=== PATIENT | female | born 1975 ===

== ENCOUNTER → 2017-09-14 | Outpatient (CLI) | payer OTHER ==
[~2017-09-14] MED LIST: ACET325T14 PO; ALBU8.5H8 INH; CALC-173 PO; CEFU500T50 PO; GLIM1TAB2 PO; GLYB2.5T2 PO; HYDR-3307; HYDR-882 PO; INSU100C5 SQ-INSULIN; INSU100I29 SQ; INSU1INS; LISI-167 PO; LORA1TAB PO; MAGN71.5 PO; METF-366; METO25TA35 PO; METO25TA91 PO; NICO-485 TD; PANT40GR PO; PANT40TA3 PO; PRED10TA PO; PROP50TA3 PO; SUCR1TAB33 PO
[2017-09-14 11:54] LABS: INTERNATIONAL NORMALIZED RATIO 0.95 (0.93-1.1); PROTHROMBIN TIME 9.8 Seconds (9.6-11.5)
[2017-09-14 11:56] LABS: ALANINE AMINOTRANSFERASE 17 U/L (12-78); ALBUMIN 3.3 g/dL (3.4-5.0); ANION GAP 6 mmol/L (5-15); CALCIUM 8.1 mg/dL (8.5-10.1); CHLORIDE 106 mmol/L (98-107); CREATININE 0.75 mg/dL (0.55-1.02)
[2017-09-14 11:59] LABS: ALKALINE PHOSPHATASE 104 U/L (45-117); BILIRUBIN,TOTAL 0.7 mg/dL (0.2-1.0); TOTAL PROTEIN 7.1 g/dL (6.4-8.2)
[2017-09-14 12:04] LABS: BASOPHILS % (AUTO) 0 % (0-1); EOSINOPHILS # (AUTO) 0.14 x10^3/uL (0-0.4); EOSINOPHILS % (AUTO) 2 % (1-7); LYMPHOCYTES # (AUTO) 2.09 x10^3/uL (1-3.4); LYMPHOCYTES % (AUTO) 36 % (22-44); MD NO; MEAN CORPUSCULAR HEMOGLOBIN 17.8 pg (27.0-34.8); MEAN CORPUSCULAR VOLUME 60.5 fL (80-100); MEAN PLATELET VOLUME 8.3 fL (7.4-10.4); MONOCYTES # (AUTO) 0.37 x10^3/uL (0.2-0.8); MONOCYTES % (AUTO) 6 % (2-9); NEUTROPHILS # (AUTO) 3.25 x10^3/uL (1.8-6.8); NEUTROPHILS % (AUTO) 56 % (42-75); PLATELET COUNT 253 x10^3/uL (130-400); RED BLOOD COUNT 4.93 x10^6/uL (3.82-5.3); RED CELL DISTRIBUTION WIDTH 17.3 % (9.6-15.2)
[2017-09-14 12:06] LABS: MEAN CORPUSCULAR HGB CONC 29.4 g/dL (32.4-35.8)
[2017-09-14 12:30] LABS: CULTURE INDICATED? YES; MICROSCOPIC AUTO
== END ==
LOC: STAR 10:35
PROVIDERS: ATTEND Neurological Surgery
DX: Z01.818 Encounter for other preprocedural examination (principal); E11.9 Type 2 diabetes mellitus without complications; R01.1 Cardiac murmur, unspecified; Z87.891 Personal history of nicotine dependence
CPT/HCPCS: 36415; 71046; 80053; 81001; 85025; 85610; 85730; 87086; 87147; 93005

== ENCOUNTER 2020-02-04 20:39 | Observation (INO) | payer MEDICAID, OTHER ==
[~2020-02-04] VITALS: Ht 162.6 cm; Wt 46.4 kg
[~2020-02-04 20:39] MED LIST changes: +ALPR0.25 PO; +AMIT10TA PO; +DOCU240C53 PO; +FERR-51 PO; +GABA-827 PO; +GABA600T7 PO; -GLIM1TAB2 PO; +GLIM1TAB7 PO; +HYDR-2440 PO; +HYDR-3246; -HYDR-3307; +HYDR-3653 PO; -HYDR-882 PO; +HYDR4TAB48 PO; +INSU100I13 SQ; +INSU100V8 SQ; +METH750T2 PO; +MULT-449 PO; +SENN-193 PO
--- NOTE | 2020-02-04 21:32 | NUR ---
Pt here for epi gastric chest pain with radiation to jaw at times. Pt reports she has had the discomfort since this morning with no resolve in symptoms. Pt reports she is unable to get and better pain control with APAP and NSAIDS at home. Pt is not diaphoretic and chest pain is reproduceable. Pt reports lower back pain but has chronic back pain and a cage in her back from previous surgeries. Pt connected to monitors and call light in reach. Awaiting further orders.
[2020-02-04] MEDS ORDERED: HYDROmorphone 1 MG/ML, 1ML INJ IV ONE ×2 (22:00→22:30)
[2020-02-04] MEDS ORDERED: ONDANSETRON 2MG/ML, 2ML IVPush ONE (22:00)
[2020-02-04] MEDS ORDERED: HYDROmorphone 1 MG/ML, 1ML INJ ONE ×2 (22:03→22:40)
[2020-02-04] MEDS ORDERED: ONDANSETRON 2MG/ML, 2ML ONE (22:03)
--- NOTE | 2020-02-04 22:15 | NUR ---
Pt medicated per emar, provider informed that 1 mg of diludid was not helping pain.
[2020-02-04 22:47] LABS: BASOPHILS # (AUTO) 0.02 x10^3/uL (0-0.1); BASOPHILS % (AUTO) 0 % (0-1); EOSINOPHILS # (AUTO) 0.02 x10^3/uL (0-0.4); EOSINOPHILS % (AUTO) 0 % (1-7); LYMPHOCYTES # (AUTO) 3.49 x10^3/uL (1-3.4); LYMPHOCYTES % (AUTO) 48 % (22-44); MD NO; MEAN CORPUSCULAR HEMOGLOBIN 27.8 pg (27.0-34.8); MEAN CORPUSCULAR HGB CONC 32.3 g/dL (32.4-35.8); MEAN PLATELET VOLUME 7.8 fL (7.4-10.4); MONOCYTES # (AUTO) 0.42 x10^3/uL (0.2-0.8); MONOCYTES % (AUTO) 6 % (2-9); NEUTROPHILS # (AUTO) 3.31 x10^3/uL (1.8-6.8); NEUTROPHILS % (AUTO) 46 % (42-75); PLATELET COUNT 211 x10^3/uL (130-400); RED BLOOD COUNT 5.46 x10^6/uL (3.82-5.3); RED CELL DISTRIBUTION WIDTH 14.3 % (9.6-15.2)
[2020-02-04 22:57] LABS: ALBUMIN 3.8 g/dL (3.4-5.0); ANION GAP 7 mmol/L (5-15); CALCIUM 8.7 mg/dL (8.5-10.1); CHLORIDE 103 mmol/L (98-107)
[2020-02-04 23:02] LABS: TROPONIN I < 0.015 ng/mL (0.000-0.045)
--- NOTE | 2020-02-04 23:13 | NUR ---
Pt reports relief in pain
[2020-02-04 23:29] LABS: FREE T4 (FREE THYROXINE) 1.02 ng/dL (0.76-1.46)
[2020-02-04] MEDS ORDERED: HYDROmorphone 2 MG/ML, 1ML ONE (23:53)
[2020-02-05] MEDS ORDERED: HYDROmorphone 2 MG/ML, 1ML IV ONE
--- NOTE | 2020-02-05 00:09 | NUR ---
Bedside report to Kelly BARNES
--- NOTE | 2020-02-05 00:11 | NUR ---
RECEIVED BS REPORT FROM CAMERON LORD. PT. MEDICATED DURING BS REPORT FOR CONTINUED C/O EPIGASTRIC PAIN. FAMILY AT BS FOR SUPPORT. PT. DENIES FURTHER NEEDS AT THE MOMENT. SPO2, B/P, AND HEART MONITORS IN PLACE. ALL SAFETY MEASURES OBSERVED.
[2020-02-05] MEDS ORDERED: LORazepam 2 MG/ML, 1ML IVPush ONE (00:30)
[2020-02-05] MEDS ORDERED: LORazepam 2 MG/ML, 1ML ONE (00:34)
--- NOTE | 2020-02-05 00:39 | NUR ---
WIND TURBINE SHEET METAL WORKER AT BS; PT. MEDICATED PER MAR FOR ANXITEY R/T MRI. PT. TO MRI AT THIS TIME.
--- NOTE | 2020-02-05 01:50 | NUR ---
PT. BACK FROM MRI; PT. REPORTS PAIN REMAINS 01/05 BUT STATES "IT'S BETTER THAN WHEN I GOT HERE, IT'S GOING DOWN". DENIES NEEDS AT THIS TIME.
--- NOTE | 2020-02-05 02:00 | NUR ---
Report received from CAMERON Dunlap. This RN to assume care.
--- NOTE | 2020-02-05 02:04 | NUR ---
REPORT TO CAMERON HA TO ASSUME CARE.
[2020-02-05] MEDS ORDERED: HYDROmorphone 2 MG/ML, 1ML ONE ×2 (02:14→03:44)
--- NOTE | 2020-02-05 02:20 | NUR ---
Patient c/o continued pain and nausea. Meds admin per jul.
[2020-02-05] MEDS ORDERED: ONDANSETRON 2MG/ML, 2ML ONE (02:26)
[2020-02-05] MEDS: HYDROmorphone 2 MG/ML, 1ML IVPush PRN ×2 (02:29→03:51)
[2020-02-05] MEDS ORDERED: ONDANSETRON 2MG/ML, 2ML IVPush ONE (02:30)
--- NOTE | 2020-02-05 02:38 | NUR ---
Awaiting MRI results.
[2020-02-05] MEDS ORDERED: KETAMINE 10 MG/ML, 20ML IV ONE (04:00)
[2020-02-05] MEDS ORDERED: SODIUM CHLORIDE 0.9% 1,000 ML IV SCH (04:02)
[2020-02-05] MEDS ORDERED: KETAMINE 10 MG/ML, 20ML ONE (04:06)
[2020-02-05] MEDS ORDERED: DEXTROSE 4 GM TAB.CHEW PO PRN (04:30)
[2020-02-05] MEDS ORDERED: ACETAMINOPHEN 325 MG TABLET PO PRN (04:30)
[2020-02-05] MEDS ORDERED: hydrALAzine 20 MG/ML, 1ML IVPush PRN (04:30)
[2020-02-05] MEDS ORDERED: GLUCAGON 1 MG IM PRN (04:30)
[2020-02-05] MEDS ORDERED: TRAZODONE 50MG TABLET PO PRN (04:30)
[2020-02-05] MEDS ORDERED: ONDANSETRON 2MG/ML, 2ML IVPush PRN (04:30)
[2020-02-05] MEDS ORDERED: DEXTROSE 50%, 50ML SYRINGE IVPush PRN (04:30)
[2020-02-05] MEDS ORDERED: DOCUSATE 100 MG CAPSULE PO PRN (04:30)
--- NOTE | 2020-02-05 04:46 | NUR ---
Report given to CAMERON Garcia. Patient transferred to room 527.
[2020-02-05 04:54] VITALS: BP 96/68
[2020-02-05] MEDS ORDERED: HYDROmorphone 4MG TABLET PO PRN (05:00)
[2020-02-05] MEDS ORDERED: NITROGLYCERIN 0.4 MG/SPRAY SL PRN (05:00)
[2020-02-05] MEDS ORDERED: NITROGLYCERIN 0.4 MG BOTTLE (25 TABS) SL PRN (05:00)
[2020-02-05] MEDS ORDERED: METHOCARBAMOL 750 MG TABLET PO PRN (05:00)
[2020-02-05] MEDS ORDERED: HYDR-3245 PO (05:08)
[2020-02-05] MEDS ORDERED: FERR324T5 PO (05:08)
[2020-02-05] MEDS ORDERED: AMIT50TA PO (05:08)
[2020-02-05] MEDS ORDERED: METH5TAB2 PO (05:31)
[2020-02-05] MEDS ORDERED: ASPIRIN 81 MG TABLET EC PO SCH (06:00)
[2020-02-05] MEDS: GABAPENTIN 300 MG CAPSULE PO SCH ×3 (06:06→16:46)
[2020-02-05] MEDS: INSULIN GLARGINE 100 UNITS/ML, PEN SQ-INSULIN SCH ×2 (06:06→12:43)
[2020-02-05] MEDS: INSULIN LISPRO 100 UNITS/ML, PEN SQ-INSULIN SCH ×3 (07:00→16:00)
[2020-02-05 07:04] LABS: CHOLESTEROL, TOTAL 185 mg/dL (140-239); TRIGLYCERIDES 188 mg/dL (50-200); TROPONIN I < 0.015 ng/mL (0.000-0.045); VLDL CHOLESTEROL 38 mg/dL (0-25)
[2020-02-05 07:05] LABS: CHOL/HDL RATIO 3.3; HDL CHOL % 30 % (28-40); HDL CHOLESTEROL (DIRECT) 56 mg/dL (40-60); LDL CHOLESTEROL,CALCULATED 91 mg/dL (54-169); LDL/HDL RATIO 1.6 (0.5-3.0)
[2020-02-05 07:35] VITALS: BP 158/74
[2020-02-05] MEDS: FERROUS SULFATE 325 MG TABLET PO SCH ×2 (08:25→14:04)
[2020-02-05] MEDS ORDERED: REGADENOSON 0.4 MG/5 ML SYRINGE ONE (08:50)
[2020-02-05] MEDS ORDERED: DOCUSATE CALCIUM 240 MG CAPSULE PO SCH (09:00)
[2020-02-05] MEDS ORDERED: ENOXAPARIN 40 MG/0.4 ML SQ SCH (09:00)
[2020-02-05] MEDS ORDERED: MULTIVITAMIN 1 TABLET PO SCH (09:00)
[2020-02-05] MEDS ORDERED: SODIUM CHLORIDE FLUSH 10ML SYR IVF SCH (09:00)
[2020-02-05] MEDS ORDERED: SENNA/DOCUSATE TABLET PO SCH (09:00)
[2020-02-05] MEDS ORDERED: METOPROLOL TARTRATE 25 MG TAB PO SCH (09:00)
[2020-02-05] MEDS ORDERED: PROPYLTHIOURACIL 50 MG TABLET PO SCH (09:00)
[2020-02-05] MEDS ORDERED: HYDROmorphone 2MG TABLET ONE ×2 (09:55→16:26)
[2020-02-05] MEDS: HYDROmorphone 4MG TABLET PO PRN ×2 (10:00→16:35)
[2020-02-05 13:09] VITALS: BP 104/65
[2020-02-05] MEDS ORDERED: METHADONE 5 MG TABLET PO SCH (17:00)
[2020-02-05] MEDS ORDERED: AMITRIPTYLINE 10 MG TABLET PO SCH (21:00)
[2020-02-05] MEDS ORDERED: ATORVASTATIN 80 MG TABLET PO SCH (21:00)
== END 2020-02-05 18:43 | disposition home or self-care (01) ==
LOC: ED 22:31 → 5SO 02-05 05:01
PROVIDERS: ADMIT Student in an Organized Health Care Education/Training Program; ATTEND Internal Medicine
DX: R07.89 Other chest pain (principal); G89.29 Other chronic pain; M54.5 Low back pain; E11.9 Type 2 diabetes mellitus without complications; E05.90 Thyrotoxicosis, unspecified without thyrotoxic crisis or storm; R00.0 Tachycardia, unspecified; I10 Essential (primary) hypertension; F17.210 Nicotine dependence, cigarettes, uncomplicated; Z79.4 Long term (current) use of insulin; Z79.899 Other long term (current) drug therapy
CPT/HCPCS: 36415; 71045; 72148; 78452; 80048; 80061; 82040; 82947; 82962; 83036; 84439; 84443; 84481; 84484; 84703; 85025; 93005; 93017; 96361; 96372; 96374; 96375; 96376; 97162; 97165; 99285; A9502; G0378; J1170; J1650; J1815; J2060; J2405; J2785; J7030

== ENCOUNTER 2020-02-28 20:14 | Inpatient (IN) | payer MEDICAID ==
[~2020-02-28] VITALS: Ht 162.6 cm; Wt 48.4 kg
[~2020-02-28 20:14] MED LIST changes: +AMIT50TA PO; +FERR324T5 PO; +HYDR-3245 PO; +METH5TAB2 PO
[2020-02-28] MEDS ORDERED: MORPHINE SULFATE 4 MG/ML, 1ML ONE ×2 (20:52→21:47)
[2020-02-28] MEDS ORDERED: SODIUM CHLORIDE FLUSH 10ML SYR IVF ONE (21:00)
[2020-02-28] MEDS ORDERED: SODIUM CHLORIDE 0.9% 1,000ML IVBOLUS ONE (21:00)
[2020-02-28] MEDS: MORPHINE SULFATE 4 MG/ML, 1ML IVPush PRN ×2 (21:00→21:51)
[2020-02-28 21:16] LABS: BASOPHILS # (AUTO) 0.01 x10^3/uL (0-0.1); BASOPHILS % (AUTO) 0 % (0-1); EOSINOPHILS # (AUTO) 0.03 x10^3/uL (0-0.4); EOSINOPHILS % (AUTO) 1 % (1-7); LYMPHOCYTES # (AUTO) 2.48 x10^3/uL (1-3.4); LYMPHOCYTES % (AUTO) 41 % (22-44); MD NO; MEAN CORPUSCULAR HEMOGLOBIN 28.9 pg (27.0-34.8); MEAN CORPUSCULAR HGB CONC 32.5 g/dL (32.4-35.8); MONOCYTES # (AUTO) 0.47 x10^3/uL (0.2-0.8); MONOCYTES % (AUTO) 8 % (2-9); NEUTROPHILS # (AUTO) 3.12 x10^3/uL (1.8-6.8); NEUTROPHILS % (AUTO) 51 % (42-75); PLATELET COUNT 254 x10^3/uL (130-400); RED CELL DISTRIBUTION WIDTH 14.2 % (9.6-15.2)
[2020-02-28] MEDS ORDERED: ONDANSETRON ODT 4 MG ONE (21:17)
--- NOTE | 2020-02-28 21:22 | NUR ---
PT HAS BEEN DIFFICULT TO PLACE PIV. THIS RN ATTEMPTED TWICE, MAC ARTIST ATTEMPTED WITH US, TASK RN AT BEDSIDE TO ATTEMPT US PIV. LABS COLLECTED BY ONE OF THE PIV ATTEMPTS WITH MANUFACTURING PROCESS ENGINEER.
[2020-02-28 21:26] LABS: ALANINE AMINOTRANSFERASE 32 U/L (12-78); ANION GAP 9 mmol/L (5-15); CALCIUM 9.3 mg/dL (8.5-10.1); CHLORIDE 101 mmol/L (98-107); CREATININE 0.61 mg/dL (0.55-1.02)
[2020-02-28] MEDS ORDERED: ONDANSETRON ODT 4 MG PO ONE (21:30)
[2020-02-28 21:31] LABS: ALKALINE PHOSPHATASE 160 U/L (45-117); TOTAL PROTEIN 8.3 g/dL (6.4-8.2); TROPONIN I < 0.015 ng/mL (0.000-0.045)
--- NOTE | 2020-02-28 21:33 | NUR ---
PIV PLACED BY TASK RN VIA US.
--- NOTE | 2020-02-28 21:54 | NUR ---
PT WHEELED TO RESTROOM TO PROVIDE URINE SAMPLE. PT STATES SHE IS IN TOO MUCH PAIN TO WALK. UA COLLECTED AND SENT TO LAB. PT MEDICATED WITH SECOND DOSE MORPHINE. IVF INFUSING. WARM BLANKET PROVIDED.
[2020-02-28 22:17] LABS: MICROSCOPIC NOT IND
--- NOTE | 2020-02-28 22:56 | NUR ---
REPORT FROM [facility]
--- NOTE | 2020-02-28 23:20 | NUR ---
PT RESTING ON GURKAYA NADN RESP EVEN AND UNLABORED NO CHANGES TO MONITORING VSS, PT REQ PAIN MEDICATION STS MORPHINE DOES NOT HELP "BUT ONE TIME I GOT THIS ONE WITH A D AND WOULD LIKE TO TRY THAT THIS TIME" ERP ADVISED.
[2020-02-29] MEDS ORDERED: KETAMINE 10 MG/ML, 20ML ONE (00:39)
--- NOTE | 2020-02-29 00:45 | NUR ---
PT MEDICATED PER MAR PER DR CAMPOS, UPON ENTERING ROOM PT AND SPOUSE RUDE TO STAFF DEMANDING TO KNOW WHAT TOOK SO LONG AND WHY RN WAS NOT IN ROOM SOONER, PT EDUCATED THAT RN WAS ATTENDING TO OTHER PATIENTS. PT AND SPOUSE BEGAN ASKING RN IF SOMEONE WAS BLEEDING OUT OR DYING THEY FEEL THAT THEY SHOULD BE GETTING RN PRIMARY FOCUS.
[2020-02-29] MEDS ORDERED: KETAMINE 10 MG/ML, 20ML IV ONE (01:00)
[2020-02-29] MEDS ORDERED: morphine SULFATE 10 MG/ML, 1ML IVPush PRN (01:30)
[2020-02-29] MEDS ORDERED: INSULIN GLARGINE 100 UNITS/ML, PEN SQ-INSULIN SCH (01:30)
[2020-02-29] MEDS ORDERED: HYDROmorphone 4MG TABLET PO PRN (01:30)
[2020-02-29] MEDS ORDERED: HYDROcodone/APAP 10/325 MG TABLET PO PRN (01:30)
--- NOTE | 2020-02-29 01:45 | NUR ---
REPORT TO NATHEN BARNES PT READY FOR TRANSFER TO ROOM 362
[2020-02-29 02:53] VITALS: BP 120/74
[2020-02-29] MEDS ORDERED: AMITRIPTYLINE 50 MG TABLET PO SCH ×2 (03:00→21:00)
[2020-02-29] MEDS: morphine SULFATE 10 MG/ML, 1ML IVPush PRN ×3 (03:11→08:42)
[2020-02-29 03:48] VITALS: BP 148/89
[2020-02-29] MEDS ORDERED: AMITRIPTYLINE 10 MG TABLET PO SCH (04:14)
[2020-02-29] MEDS: HYDROmorphone 2MG TABLET PO PRN ×3 (04:57→17:53)
[2020-02-29 05:00] VITALS: BP 145/82
[2020-02-29 05:47] LABS: TROPONIN I < 0.015 ng/mL (0.000-0.045)
[2020-02-29] MEDS: GABAPENTIN 300 MG CAPSULE PO SCH ×4 (06:26→21:24)
[2020-02-29 06:44] VITALS: BP 115/74
[2020-02-29] MEDS: INSULIN LISPRO 100 UNITS/ML, PEN SQ-INSULIN SCH ×4 (07:00→21:45)
[2020-02-29] MEDS: DOCUSATE CALCIUM 240 MG CAPSULE PO SCH ×2 (08:46→10:02)
[2020-02-29] MEDS: PROPYLTHIOURACIL 50 MG TABLET PO SCH (08:47)
[2020-02-29] MEDS ORDERED: METOPROLOL TARTRATE 25 MG TAB PO SCH (09:00)
[2020-02-29] MEDS: SENNA/DOCUSATE TABLET PO SCH (09:00)
[2020-02-29] MEDS: FERROUS SULFATE 325 MG TABLET PO SCH ×3 (10:01→21:45)
[2020-02-29] MEDS: METHOCARBAMOL 750 MG TABLET PO SCH (10:01)
[2020-02-29] MEDS: HYDROcodone/APAP 10/325 MG TABLET PO PRN ×3 (10:01→21:25)
[2020-02-29] MEDS: MULTIVITAMIN 1 TABLET PO SCH (10:02)
[2020-02-29] MEDS: METOPROLOL TARTRATE 25 MG TAB PO SCH ×3 (10:02→21:24)
[2020-02-29] MEDS: METHADONE 5 MG TABLET PO SCH ×2 (10:03→21:24)
[2020-02-29] MEDS: INSULIN GLARGINE 100 UNITS/ML, PEN SQ-INSULIN SCH (11:24)
[2020-02-29 14:05] VITALS: BP 139/93
[2020-02-29 14:31] LABS: FREE T4 (FREE THYROXINE) 1.56 ng/dL (0.76-1.46)
[2020-02-29 20:15] VITALS: BP 136/74
[2020-02-29] MEDS: AMITRIPTYLINE 10 MG TABLET PO SCH (21:24)
[2020-02-29] MEDS: AMITRIPTYLINE 50 MG TABLET PO SCH (21:24)
[2020-02-29] MEDS ORDERED: ONDANSETRON 2MG/ML, 2ML IVPush PRN (21:30)
[2020-03-01 00:40] VITALS: BP 111/70
[2020-03-01] MEDS: HYDROmorphone 2MG TABLET PO PRN ×5 (00:45→22:07)
[2020-03-01] MEDS: GABAPENTIN 300 MG CAPSULE PO SCH ×4 (05:08→21:04)
[2020-03-01 05:09] LABS: MEAN CORPUSCULAR HEMOGLOBIN 28.9 pg (27.0-34.8); MEAN CORPUSCULAR HGB CONC 32.5 g/dL (32.4-35.8); PLATELET COUNT 210 x10^3/uL (130-400); RED BLOOD COUNT 4.97 x10^6/uL (3.82-5.3); RED CELL DISTRIBUTION WIDTH 14.1 % (9.6-15.2)
[2020-03-01 05:10] VITALS: BP 117/74
[2020-03-01 05:21] LABS: ALBUMIN 3.1 g/dL (3.4-5.0); ANION GAP 4 mmol/L (5-15); CALCIUM 8.5 mg/dL (8.5-10.1); CHLORIDE 105 mmol/L (98-107)
[2020-03-01 05:25] LABS: ALANINE AMINOTRANSFERASE 50 U/L (12-78); ALKALINE PHOSPHATASE 135 U/L (45-117); BILIRUBIN,TOTAL 0.6 mg/dL (0.2-1.0); CREATININE 0.54 mg/dL (0.55-1.02); TOTAL PROTEIN 6.6 g/dL (6.4-8.2)
[2020-03-01 05:45] LABS: MD YES
[2020-03-01 06:16] LABS: EOS#(MANUAL) 0.48 x10^3/uL (0.0-0.4); EOS% (MANUAL) 7 % (1-7); LYMPH#(MANUAL) 3.54 x10^3/uL (1-3.4); LYMPHS% (MANUAL) 52 % (22-44); MONOS#(MANUAL) 0.34 x10^3/uL (0.3-2.7); MONOS% (MANUAL) 5 % (2-9); REACTIVE LYMPHS # (MANUAL) 0.07 x10^3/uL (0-0); REACTIVE LYMPHS % (MANUAL) 1 % (0-0); SEG#(MANUAL) 2.38 x10^3/uL (1.8-6.8); SEGS% (MANUAL) 35 % (42-75)
[2020-03-01 06:17] LABS: <PLATELET ESTIMATE> ADEQUATE; <PLT MORPHOLOGY> NORMAL PLT MORPH; ANISOCYTOSIS 1+
[2020-03-01] MEDS: INSULIN LISPRO 100 UNITS/ML, PEN SQ-INSULIN SCH ×4 (07:00→21:00)
[2020-03-01 07:24] VITALS: BP 121/74
[2020-03-01] MEDS ORDERED: HYDR4TAB PO (07:45)
[2020-03-01] MEDS: METHOCARBAMOL 750 MG TABLET PO SCH (08:04)
[2020-03-01] MEDS: METHADONE 5 MG TABLET PO SCH ×2 (08:04→21:04)
[2020-03-01] MEDS: METOPROLOL TARTRATE 25 MG TAB PO SCH ×3 (08:04→21:04)
[2020-03-01] MEDS: PROPYLTHIOURACIL 50 MG TABLET PO SCH (09:00)
[2020-03-01] MEDS ORDERED: METHIMAZOLE 5 MG TAB PO SCH (09:00)
[2020-03-01] MEDS ORDERED: METO25TA35 PO (09:28)
[2020-03-01] MEDS ORDERED: METH10TA6 PO (09:28)
[2020-03-01] MEDS: MULTIVITAMIN 1 TABLET PO SCH (09:30)
[2020-03-01] MEDS: FERROUS SULFATE 325 MG TABLET PO SCH ×3 (09:30→21:04)
[2020-03-01] MEDS: SENNA/DOCUSATE TABLET PO SCH (09:32)
[2020-03-01] MEDS: INSULIN GLARGINE 100 UNITS/ML, PEN SQ-INSULIN SCH (09:49)
[2020-03-01] MEDS ORDERED: DOCUSATE CALCIUM 240 MG CAPSULE PO PRN (12:00)
[2020-03-01 13:08] VITALS: BP 107/70
[2020-03-01 16:32] VITALS: BP 112/70
[2020-03-01 19:51] VITALS: BP 116/72
[2020-03-01] MEDS ORDERED: AMITRIPTYLINE 25 MG TABLET ONE (21:58)
[2020-03-01] MEDS: AMITRIPTYLINE 50 MG TABLET PO SCH (22:08)
[2020-03-01] MEDS: AMITRIPTYLINE 10 MG TABLET PO SCH (22:08)
[2020-03-02 01:02] VITALS: BP 106/67
[2020-03-02] MEDS: HYDROmorphone 2MG TABLET PO PRN ×4 (04:44→23:18)
[2020-03-02] MEDS: GABAPENTIN 300 MG CAPSULE PO SCH ×4 (06:03→20:37)
[2020-03-02] MEDS: INSULIN LISPRO 100 UNITS/ML, PEN SQ-INSULIN SCH ×4 (07:00→21:00)
[2020-03-02 08:46] VITALS: BP 121/78
[2020-03-02] MEDS: METOPROLOL TARTRATE 25 MG TAB PO SCH ×3 (08:54→20:37)
[2020-03-02] MEDS: MULTIVITAMIN 1 TABLET PO SCH (08:55)
[2020-03-02] MEDS: METHOCARBAMOL 750 MG TABLET PO SCH (08:55)
[2020-03-02] MEDS: METHADONE 5 MG TABLET PO SCH ×2 (08:56→20:37)
[2020-03-02] MEDS: SENNA/DOCUSATE TABLET PO SCH (08:57)
[2020-03-02] MEDS: FERROUS SULFATE 325 MG TABLET PO SCH ×4 (08:57→16:32)
[2020-03-02] MEDS: INSULIN GLARGINE 100 UNITS/ML, PEN SQ-INSULIN SCH (08:59)
[2020-03-02 12:05] VITALS: BP 105/69
[2020-03-02 18:32] VITALS: BP 123/75
[2020-03-02] MEDS: AMITRIPTYLINE 10 MG TABLET PO SCH (21:46)
[2020-03-02] MEDS: AMITRIPTYLINE 50 MG TABLET PO SCH (21:46)
[2020-03-03 00:14] VITALS: BP 125/76
[2020-03-03] MEDS: GABAPENTIN 300 MG CAPSULE PO SCH ×4 (05:15→20:46)
[2020-03-03] MEDS: HYDROmorphone 2MG TABLET PO PRN ×4 (05:15→23:16)
[2020-03-03 06:30] VITALS: BP 120/77
[2020-03-03] MEDS: INSULIN LISPRO 100 UNITS/ML, PEN SQ-INSULIN SCH ×4 (07:48→22:04)
[2020-03-03] MEDS: FERROUS SULFATE 325 MG TABLET PO SCH ×3 (09:16→16:42)
[2020-03-03] MEDS: METHADONE 5 MG TABLET PO SCH ×2 (09:16→20:46)
[2020-03-03] MEDS: METOPROLOL TARTRATE 25 MG TAB PO SCH ×3 (09:16→20:46)
[2020-03-03] MEDS: METHOCARBAMOL 750 MG TABLET PO SCH (09:16)
[2020-03-03] MEDS: SENNA/DOCUSATE TABLET PO SCH (09:17)
[2020-03-03] MEDS: MULTIVITAMIN 1 TABLET PO SCH (09:17)
[2020-03-03] MEDS: INSULIN GLARGINE 100 UNITS/ML, PEN SQ-INSULIN SCH (09:18)
[2020-03-03 13:10] VITALS: BP 99/65
--- NOTE | 2020-03-03 14:35 | NUR ---
green nursing activity sheet intiated up to chair for meals walk with nursing 2-3 times a day EARNEST valdivia x10 bilaterally pt and RN agreed Addendum: 03/03/20 at 1437 by Tamra Parker PT Amended: Links added.
[2020-03-03 16:17] VITALS: BP 103/67
[2020-03-03 17:17] VITALS: BP 118/77
[2020-03-03 18:35] VITALS: BP 115/69
[2020-03-03] MEDS: AMITRIPTYLINE 50 MG TABLET PO SCH (22:04)
[2020-03-03] MEDS: AMITRIPTYLINE 10 MG TABLET PO SCH (22:04)
[2020-03-04 00:30] VITALS: BP 101/63
[2020-03-04] MEDS: HYDROmorphone 2MG TABLET PO PRN ×4 (05:18→23:53)
[2020-03-04] MEDS: GABAPENTIN 300 MG CAPSULE PO SCH ×4 (05:18→20:28)
[2020-03-04 06:34] VITALS: BP 106/69
[2020-03-04] MEDS: METHOCARBAMOL 750 MG TABLET PO SCH (08:06)
[2020-03-04] MEDS: FERROUS SULFATE 325 MG TABLET PO SCH ×3 (08:06→16:52)
[2020-03-04] MEDS: INSULIN LISPRO 100 UNITS/ML, PEN SQ-INSULIN SCH ×4 (08:06→20:29)
[2020-03-04] MEDS: METHADONE 5 MG TABLET PO SCH ×2 (08:06→20:28)
[2020-03-04] MEDS: MULTIVITAMIN 1 TABLET PO SCH (08:06)
[2020-03-04] MEDS: SENNA/DOCUSATE TABLET PO SCH (08:07)
[2020-03-04] MEDS: METOPROLOL TARTRATE 25 MG TAB PO SCH ×3 (08:07→20:28)
[2020-03-04] MEDS: INSULIN GLARGINE 100 UNITS/ML, PEN SQ-INSULIN SCH (08:08)
[2020-03-04 13:56] VITALS: BP 103/64
[2020-03-04 16:56] VITALS: BP 116/75
[2020-03-04 19:53] VITALS: BP 106/61
[2020-03-04] MEDS: AMITRIPTYLINE 10 MG TABLET PO SCH (21:09)
[2020-03-04] MEDS: AMITRIPTYLINE 50 MG TABLET PO SCH (21:09)
[2020-03-05 00:06] VITALS: BP 104/67
[2020-03-05] MEDS: HYDROmorphone 2MG TABLET PO PRN ×3 (06:09→18:13)
[2020-03-05] MEDS: GABAPENTIN 300 MG CAPSULE PO SCH ×4 (06:09→20:40)
[2020-03-05 07:51] VITALS: BP 113/74
[2020-03-05] MEDS: SENNA/DOCUSATE TABLET PO SCH (09:00)
[2020-03-05] MEDS: FERROUS SULFATE 325 MG TABLET PO SCH ×3 (09:16→18:13)
[2020-03-05] MEDS: INSULIN LISPRO 100 UNITS/ML, PEN SQ-INSULIN SCH ×5 (09:16→21:31)
[2020-03-05] MEDS: MULTIVITAMIN 1 TABLET PO SCH (09:17)
[2020-03-05] MEDS: METOPROLOL TARTRATE 25 MG TAB PO SCH ×3 (09:17→20:41)
[2020-03-05] MEDS: METHOCARBAMOL 750 MG TABLET PO SCH (09:17)
[2020-03-05] MEDS: METHADONE 5 MG TABLET PO SCH ×2 (09:17→20:40)
[2020-03-05] MEDS: INSULIN GLARGINE 100 UNITS/ML, PEN SQ-INSULIN SCH (10:33)
[2020-03-05] MEDS ORDERED: MAALOX/HYOSCYAMINE/LIDOCAINE 45 ML BTL PO ONE (12:00)
[2020-03-05 12:58] VITALS: BP 113/73
[2020-03-05] MEDS ORDERED: INSULIN LISPRO 100 UNITS/ML, PEN SQ-INSULIN SCH (16:00)
[2020-03-05 20:34] VITALS: BP 108/67
[2020-03-05] MEDS: AMITRIPTYLINE 10 MG TABLET PO SCH (21:31)
[2020-03-05] MEDS: AMITRIPTYLINE 50 MG TABLET PO SCH (21:31)
[2020-03-06 00:12] VITALS: BP 102/63
[2020-03-06] MEDS: HYDROmorphone 2MG TABLET PO PRN ×4 (00:15→18:03)
[2020-03-06] MEDS: GABAPENTIN 300 MG CAPSULE PO SCH ×4 (06:13→20:51)
[2020-03-06] MEDS: METHOCARBAMOL 750 MG TABLET PO SCH (07:53)
[2020-03-06] MEDS: SENNA/DOCUSATE TABLET PO SCH (07:53)
[2020-03-06] MEDS: FERROUS SULFATE 325 MG TABLET PO SCH ×3 (07:53→16:52)
[2020-03-06] MEDS: METOPROLOL TARTRATE 25 MG TAB PO SCH ×3 (07:53→20:51)
[2020-03-06] MEDS: METHADONE 5 MG TABLET PO SCH ×2 (07:53→20:51)
[2020-03-06] MEDS: INSULIN GLARGINE 100 UNITS/ML, PEN SQ-INSULIN SCH (07:54)
[2020-03-06] MEDS: INSULIN LISPRO 100 UNITS/ML, PEN SQ-INSULIN SCH ×4 (07:55→22:02)
[2020-03-06] MEDS: MULTIVITAMIN 1 TABLET PO SCH (07:57)
[2020-03-06 09:02] VITALS: BP 101/67
[2020-03-06 12:30] VITALS: BP 98/62
[2020-03-06 19:24] VITALS: BP 106/69
[2020-03-06] MEDS: AMITRIPTYLINE 10 MG TABLET PO SCH (21:53)
[2020-03-06] MEDS: AMITRIPTYLINE 50 MG TABLET PO SCH (21:53)
[2020-03-07] MEDS: HYDROmorphone 2MG TABLET PO PRN ×5 (00:09→23:01)
[2020-03-07 00:41] VITALS: BP 104/67
[2020-03-07] MEDS: GABAPENTIN 300 MG CAPSULE PO SCH ×4 (06:05→20:40)
[2020-03-07] MEDS: INSULIN LISPRO 100 UNITS/ML, PEN SQ-INSULIN SCH ×5 (07:00→20:40)
[2020-03-07] MEDS: METHOCARBAMOL 750 MG TABLET PO SCH (08:47)
[2020-03-07] MEDS: MULTIVITAMIN 1 TABLET PO SCH (08:48)
[2020-03-07] MEDS: METHADONE 5 MG TABLET PO SCH ×2 (08:48→20:39)
[2020-03-07] MEDS: SENNA/DOCUSATE TABLET PO SCH (08:48)
[2020-03-07] MEDS: METOPROLOL TARTRATE 25 MG TAB PO SCH ×3 (08:48→20:39)
[2020-03-07] MEDS: FERROUS SULFATE 325 MG TABLET PO SCH ×3 (08:48→16:33)
[2020-03-07] MEDS: INSULIN GLARGINE 100 UNITS/ML, PEN SQ-INSULIN SCH (08:49)
[2020-03-07 10:45] VITALS: BP 100/69
[2020-03-07 15:51] VITALS: BP 101/66
[2020-03-07 20:00] VITALS: BP 109/70
[2020-03-07 20:36] VITALS: BP 116/69
[2020-03-07] MEDS: AMITRIPTYLINE 50 MG TABLET PO SCH (20:39)
[2020-03-07] MEDS: AMITRIPTYLINE 10 MG TABLET PO SCH (20:40)
[2020-03-08 00:35] VITALS: BP 108/68
[2020-03-08] MEDS: HYDROmorphone 2MG TABLET PO PRN ×4 (05:25→23:04)
[2020-03-08] MEDS: GABAPENTIN 300 MG CAPSULE PO SCH ×4 (05:25→20:44)
[2020-03-08 06:40] VITALS: BP 110/71
[2020-03-08] MEDS: MULTIVITAMIN 1 TABLET PO SCH (07:41)
[2020-03-08] MEDS: METHOCARBAMOL 750 MG TABLET PO SCH (07:41)
[2020-03-08] MEDS: METOPROLOL TARTRATE 25 MG TAB PO SCH ×3 (07:41→20:45)
[2020-03-08] MEDS: SENNA/DOCUSATE TABLET PO SCH (07:41)
[2020-03-08] MEDS: INSULIN LISPRO 100 UNITS/ML, PEN SQ-INSULIN SCH ×5 (07:41→20:44)
[2020-03-08] MEDS: FERROUS SULFATE 325 MG TABLET PO SCH ×3 (07:41→16:30)
[2020-03-08] MEDS: INSULIN GLARGINE 100 UNITS/ML, PEN SQ-INSULIN SCH (07:43)
[2020-03-08] MEDS: METHADONE 5 MG TABLET PO SCH ×2 (09:09→20:44)
[2020-03-08 12:53] VITALS: BP 103/66
[2020-03-08 19:50] VITALS: BP 107/68
[2020-03-08 20:42] VITALS: BP 114/71
[2020-03-08] MEDS: AMITRIPTYLINE 10 MG TABLET PO SCH (20:44)
[2020-03-08] MEDS: AMITRIPTYLINE 50 MG TABLET PO SCH (20:45)
[2020-03-09 00:22] VITALS: BP 101/65
[2020-03-09] MEDS: HYDROmorphone 2MG TABLET PO PRN ×3 (05:30→18:07)
[2020-03-09] MEDS: GABAPENTIN 300 MG CAPSULE PO SCH ×4 (05:30→20:57)
[2020-03-09] MEDS: FERROUS SULFATE 325 MG TABLET PO SCH ×3 (07:17→16:11)
[2020-03-09] MEDS: METOPROLOL TARTRATE 25 MG TAB PO SCH ×3 (07:17→20:56)
[2020-03-09] MEDS: METHOCARBAMOL 750 MG TABLET PO SCH (07:17)
[2020-03-09] MEDS: MULTIVITAMIN 1 TABLET PO SCH (07:17)
[2020-03-09] MEDS: SENNA/DOCUSATE TABLET PO SCH (07:18)
[2020-03-09 07:22] VITALS: BP 111/68
[2020-03-09] MEDS: INSULIN LISPRO 100 UNITS/ML, PEN SQ-INSULIN SCH ×4 (07:33→20:57)
[2020-03-09] MEDS: METHADONE 5 MG TABLET PO SCH ×2 (09:24→20:56)
[2020-03-09] MEDS: INSULIN GLARGINE 100 UNITS/ML, PEN SQ-INSULIN SCH (09:27)
[2020-03-09 15:24] VITALS: BP 104/65
[2020-03-09 20:21] VITALS: BP 120/69
[2020-03-09] MEDS: AMITRIPTYLINE 50 MG TABLET PO SCH (20:56)
[2020-03-09] MEDS: AMITRIPTYLINE 10 MG TABLET PO SCH (20:56)
[2020-03-10] MEDS: HYDROmorphone 2MG TABLET PO PRN ×4 (00:13→18:33)
[2020-03-10 01:53] VITALS: BP 97/59
[2020-03-10 05:43] LABS: ANION GAP 3 mmol/L (5-15); CALCIUM 8.8 mg/dL (8.5-10.1); CHLORIDE 103 mmol/L (98-107)
[2020-03-10 05:55] LABS: CREATININE 0.54 mg/dL (0.55-1.02)
[2020-03-10] MEDS: GABAPENTIN 300 MG CAPSULE PO SCH ×4 (06:11→20:44)
[2020-03-10 06:30] VITALS: BP 97/60
[2020-03-10] MEDS: FERROUS SULFATE 325 MG TABLET PO SCH ×3 (07:18→15:51)
[2020-03-10] MEDS: MULTIVITAMIN 1 TABLET PO SCH (07:18)
[2020-03-10] MEDS: SENNA/DOCUSATE TABLET PO SCH (07:18)
[2020-03-10] MEDS: METHOCARBAMOL 750 MG TABLET PO SCH (07:19)
[2020-03-10] MEDS: METOPROLOL TARTRATE 25 MG TAB PO SCH ×3 (07:19→20:44)
[2020-03-10 07:23] VITALS: BP 101/60
[2020-03-10] MEDS: INSULIN LISPRO 100 UNITS/ML, PEN SQ-INSULIN SCH ×4 (08:06→20:44)
[2020-03-10] MEDS: METHADONE 5 MG TABLET PO SCH ×2 (09:39→20:44)
[2020-03-10] MEDS: INSULIN GLARGINE 100 UNITS/ML, PEN SQ-INSULIN SCH (10:38)
[2020-03-10 14:55] VITALS: BP 116/65
[2020-03-10 19:41] VITALS: BP 100/68
[2020-03-10 20:41] VITALS: BP 108/69
[2020-03-10] MEDS: AMITRIPTYLINE 10 MG TABLET PO SCH (20:44)
[2020-03-10] MEDS: AMITRIPTYLINE 50 MG TABLET PO SCH (20:45)
[2020-03-11 00:14] VITALS: BP 97/60
[2020-03-11] MEDS: HYDROmorphone 2MG TABLET PO PRN ×3 (04:22→16:06)
[2020-03-11] MEDS: GABAPENTIN 300 MG CAPSULE PO SCH ×3 (05:39→16:06)
[2020-03-11 08:00] VITALS: BP 98/64
[2020-03-11] MEDS ORDERED: DOCUSATE 100 MG CAPSULE ONE (08:07)
[2020-03-11] MEDS: METHADONE 5 MG TABLET PO SCH (08:15)
[2020-03-11] MEDS: METHOCARBAMOL 750 MG TABLET PO SCH (08:15)
[2020-03-11] MEDS: SENNA/DOCUSATE TABLET PO SCH (08:15)
[2020-03-11] MEDS: METOPROLOL TARTRATE 25 MG TAB PO SCH ×2 (08:15→16:06)
[2020-03-11] MEDS: FERROUS SULFATE 325 MG TABLET PO SCH ×3 (08:16→16:40)
[2020-03-11] MEDS: MULTIVITAMIN 1 TABLET PO SCH (08:16)
[2020-03-11] MEDS: INSULIN LISPRO 100 UNITS/ML, PEN SQ-INSULIN SCH ×3 (08:17→16:35)
[2020-03-11] MEDS: INSULIN GLARGINE 100 UNITS/ML, PEN SQ-INSULIN SCH (08:18)
[2020-03-11 10:58] VITALS: BP 100/62
[2020-03-11 14:00] VITALS: BP 104/63
[2020-03-11 17:01] VITALS: BP 102/63
== END 2020-03-11 18:30 | disposition home or self-care (01) | DRG 313 ==
LOC: ED 02-29 01:38 → EDIP 02-29 01:50 → INTOOBSV 02-29 01:50 → 3N 02-29 02:44 → 5SO 02-29 03:42 → OBSVTOIN 03-01 12:18 → 3N 03-01 16:00
PROVIDERS: ADMIT Family Medicine; ATTEND Family Medicine
DX: R07.89 Other chest pain (principal); E43 Unspecified severe protein-calorie malnutrition; F11.20 Opioid dependence, uncomplicated; Z68.1 Body mass index [BMI] 19.9 or less, adult; E11.649 Type 2 diabetes mellitus with hypoglycemia without coma; E11.65 Type 2 diabetes mellitus with hyperglycemia; F41.1 Generalized anxiety disorder; G89.4 Chronic pain syndrome; I10 Essential (primary) hypertension; Z53.20 Procedure and treatment not carried out because of patient's decision for unspecified reasons; Z76.5 Malingerer [conscious simulation]; Z79.899 Other long term (current) drug therapy; Z88.6 Allergy status to analgesic agent; E05.90 Thyrotoxicosis, unspecified without thyrotoxic crisis or storm; R00.0 Tachycardia, unspecified
CPT/HCPCS: 36415; 71045; 76536; 80048; 80053; 81003; 82040; 82962; 83690; 83880; 84439; 84443; 84481; 84484; 85025; 85379; 93005; 93306; 96361; 96374; 96375; 96376; 99285; G0378; Q0162; J1815; J2270; J7030

== ENCOUNTER 2020-10-25 08:22 | Inpatient (IN) | payer MEDICAID ==
[~2020-10-25] VITALS: Ht 162.6 cm; Wt 56.0 kg
[~2020-10-25 08:22] MED LIST changes: +AMIT75TA PO; -HYDR-2440 PO; -HYDR-3245 PO; -HYDR-3246; +HYDR-3248; +HYDR-3569 PO; +HYDR1TAB53 PO; +HYDR4TAB PO; +METH-640 PO; +METH10TA6 PO; -METH750T2 PO; +METO50TA82 PO; +OXYC10TA6 PO; +OXYC5TAB98 PO; +TIZA4CAP PO
[2020-10-25] MEDS ORDERED: ONDANSETRON 2MG/ML, 2ML IVPush ONE (08:30)
[2020-10-25] MEDS ORDERED: SODIUM CHLORIDE 0.9% 1,000ML IVBOLUS ONE ×3 (08:30→10:00)
--- NOTE | 2020-10-25 08:30 | NUR ---
This pt is coming from home where she lives with her and 2 daughters. - , Yan, okay to update: . - She was awoke this AM from sleep by CP. Hx of NC, she described this pain as worse. Pt also c/o nausea. Pt has a hx of DM with 2 hospitalizations for DKA. Pt presents AA&Ox4. Connected to all monitors. EKG done immediately on arrival and repeated approx 15 minutes later.
[2020-10-25] MEDS ORDERED: ONDANSETRON 2MG/ML, 2ML ONE (08:36)
[2020-10-25] MEDS ORDERED: MORPHINE SULFATE 4 MG/ML, 1ML ONE ×2 (08:37→08:58)
[2020-10-25] MEDS: MORPHINE SULFATE 4 MG/ML, 1ML IVPush PRN ×2 (08:38→09:00)
[2020-10-25 09:03] LABS: BASOPHILS % (AUTO) 0 % (0-1); EOSINOPHILS % (AUTO) 0 % (1-7); LYMPHOCYTES % (AUTO) 10 % (22-44); MEAN CORPUSCULAR HGB CONC 31.6 g/dL (32.4-35.8); MEAN PLATELET VOLUME 7.8 fL (7.4-10.4); MONOCYTES % (AUTO) 4 % (2-9); NEUTROPHILS % (AUTO) 87 % (42-75); PLATELET COUNT 279 x10^3/uL (130-400); RED BLOOD COUNT 5.79 x10^6/uL (3.82-5.3); RED CELL DISTRIBUTION WIDTH 19.1 % (9.6-15.2)
[2020-10-25 09:12] LABS: ALBUMIN 4.3 g/dL (3.4-5.0); ANION GAP 19 mmol/L (5-15); CALCIUM 8.8 mg/dL (8.5-10.1); CHLORIDE 102 mmol/L (98-107)
[2020-10-25 09:18] LABS: ALANINE AMINOTRANSFERASE 28 U/L (12-78); ALKALINE PHOSPHATASE 162 U/L (45-117); BILIRUBIN,TOTAL 0.9 mg/dL (0.2-1.0); CREATININE 0.78 mg/dL (0.55-1.02); TOTAL PROTEIN 8.9 g/dL (6.4-8.2); TROPONIN I < 0.015 ng/mL (0.000-0.045)
[2020-10-25 09:21] LABS: MD SCAN
[2020-10-25 09:30] LABS: ACETONE, SERUM Large (80mg/dL) (Negative)
[2020-10-25] MEDS ORDERED: METOCLOPRAMIDE 5 MG/ML, 2ML IVPush ONE (09:30)
[2020-10-25] MEDS ORDERED: METOCLOPRAMIDE 5 MG/ML, 2ML ONE (09:40)
[2020-10-25] MEDS ORDERED: SODIUM CHLORIDE 0.9% 1,000 ML IV SCH (10:00)
[2020-10-25] MEDS ORDERED: LABETALOL 5MG/ML, 20ML IVPush PRN (10:00)
[2020-10-25] MEDS: D5%-0.45NACL+KCL 20MEQ 1,000 ML IV SCH ×3 (10:00→23:53)
[2020-10-25] MEDS ORDERED: DOCUSATE 100 MG CAPSULE PO PRN (10:00)
[2020-10-25] MEDS ORDERED: REGULAR INSULIN 100 UNITS in SODIUM CHLORIDE 0.9% 99 ML IV PRN (10:00)
[2020-10-25] MEDS ORDERED: ENALAPRILAT 1.25 MG/ML, 2ML IVPush PRN (10:00)
[2020-10-25] MEDS ORDERED: POLYETHYLENE GLYCOL 17 GM PACKET PO PRN (10:00)
[2020-10-25] MEDS ORDERED: LORazepam 2 MG/ML, 1ML IVPush ONE (10:00)
[2020-10-25] MEDS ORDERED: BISACODYL 10 MG SUPP PR PRN (10:00)
--- NOTE | 2020-10-25 10:18 | NUR ---
Pt denied bedside commode to collect UA. Pt wheeled to bathroom. UA collected.
--- NOTE | 2020-10-25 10:21 | NUR ---
TASK RN: PT BACK IN BED, HOOKED BACK TO MONITORS. BEDRAIL UPX2, CALL LIGHT W/IN REACH. LIONEL.
[2020-10-25 10:22] LABS: FREE T4 (FREE THYROXINE) 1.6 ng/dL (0.76-1.46)
[2020-10-25] MEDS ORDERED: INSULIN REGULAR 100 UNITS/ML, 3ML VIAL IVPush ONE (10:30)
[2020-10-25] MEDS ORDERED: FERR-51 PO (10:49)
[2020-10-25] MEDS ORDERED: TIZA4TAB2 PO (10:49)
[2020-10-25 11:01] LABS: MICROSCOPIC AUTO
[2020-10-25 11:10] LABS: AMPHETAMINE SCREEN, URINE Negative (Negative); BARBITURATE SCREEN, URINE Negative (Negative); BENZODIAZEPINE SCREEN, URINE Negative (Negative); CANNABINOID SCREEN, URINE Negative (Negative); COCAINE SCREEN, URINE Negative (Negative); METHADONE SCREEN, URINE Positive (Negative); OPIATE SCREEN, URINE Positive (Negative)
[2020-10-25] MEDS: OXYcodone IR 5MG TABLET PO PRN ×3 (11:43→20:27)
[2020-10-25] MEDS: ACETAMINOPHEN 325 MG TABLET PO PRN ×2 (11:43→16:18)
[2020-10-25] MEDS: ENOXAPARIN 40 MG/0.4 ML SQ SCH (11:43)
[2020-10-25] MEDS: METOPROLOL TARTRATE 50 MG TAB PO SCH ×2 (11:43→20:25)
[2020-10-25 12:07] VITALS: BP 154/77
[2020-10-25] MEDS: ONDANSETRON 2MG/ML, 2ML IV PRN ×3 (12:22→20:40)
[2020-10-25 14:56] LABS: CALCIUM 7.5 mg/dL (8.5-10.1); CHLORIDE 114 mmol/L (98-107)
[2020-10-25 15:08] LABS: ANION GAP 10 mmol/L (5-15)
[2020-10-25] MEDS: GABAPENTIN 300 MG CAPSULE PO SCH ×2 (16:18→20:26)
[2020-10-25 17:57] LABS: ANION GAP 9 mmol/L (5-15); CALCIUM 7.4 mg/dL (8.5-10.1); CHLORIDE 114 mmol/L (98-107); CREATININE 0.54 mg/dL (0.55-1.02)
[2020-10-25] MEDS: AMITRIPTYLINE 75 MG TABLET PO SCH (20:24)
[2020-10-25 22:38] LABS: ANION GAP 6 mmol/L (5-15); CALCIUM 7.6 mg/dL (8.5-10.1); CHLORIDE 114 mmol/L (98-107); CREATININE 0.58 mg/dL (0.55-1.02)
[2020-10-26 02:28] LABS: ANION GAP 7 mmol/L (5-15); CHLORIDE 119 mmol/L (98-107); CREATININE 0.46 mg/dL (0.55-1.02)
[2020-10-26] MEDS: OXYcodone IR 5MG TABLET PO PRN ×6 (02:35→23:08)
[2020-10-26] MEDS: ONDANSETRON 2MG/ML, 2ML IV PRN ×4 (04:44→21:03)
[2020-10-26] MEDS: GABAPENTIN 300 MG CAPSULE PO SCH ×4 (06:23→20:39)
[2020-10-26 07:09] LABS: ANION GAP 7 mmol/L (5-15); CALCIUM 7.8 mg/dL (8.5-10.1); CHLORIDE 112 mmol/L (98-107)
[2020-10-26 07:10] LABS: CREATININE 0.44 mg/dL (0.55-1.02)
[2020-10-26] MEDS: INSULIN LISPRO 100 UNITS/ML, PEN SQ-INSULIN SCH ×4 (07:30→20:41)
[2020-10-26] MEDS: METOPROLOL TARTRATE 50 MG TAB PO SCH ×2 (07:50→20:40)
[2020-10-26] MEDS: INSULIN GLARGINE 100 UNITS/ML, PEN SQ-INSULIN SCH ×2 (07:50→20:41)
[2020-10-26] MEDS: MULTIVITAMIN 1 TABLET PO SCH (07:50)
[2020-10-26] MEDS: METHADONE 5 MG TABLET PO SCH (07:51)
[2020-10-26] MEDS: SODIUM CHLORIDE 0.9% 1,000 ML IV SCH ×2 (07:58→14:58)
[2020-10-26 08:31] LABS: TROPONIN I 0.019 ng/mL (0.000-0.045)
[2020-10-26] MEDS: ENOXAPARIN 40 MG/0.4 ML SQ SCH (10:06)
[2020-10-26 10:39] VITALS: BP 135/79
[2020-10-26 13:11] VITALS: BP 144/84
[2020-10-26 18:23] VITALS: BP 143/87
[2020-10-26 20:38] VITALS: BP 134/75
[2020-10-26] MEDS: AMITRIPTYLINE 75 MG TABLET PO SCH (20:39)
[2020-10-26] MEDS: TIZANIDINE 4MG TABLET PO PRN (21:04)
[2020-10-27] MEDS: SODIUM CHLORIDE 0.9% 1,000 ML IV SCH (00:30)
[2020-10-27 00:40] VITALS: BP 106/65
[2020-10-27] MEDS: OXYcodone IR 5MG TABLET PO PRN ×5 (03:47→20:16)
[2020-10-27] MEDS: GABAPENTIN 300 MG CAPSULE PO SCH ×4 (05:19→20:16)
[2020-10-27 05:29] LABS: BASOPHILS % (AUTO) 1 % (0-1); EOSINOPHILS % (AUTO) 2 % (1-7); LYMPHOCYTES % (AUTO) 40 % (22-44); MEAN CORPUSCULAR HEMOGLOBIN 25.6 pg (27.0-34.8); MEAN CORPUSCULAR HGB CONC 32.8 g/dL (32.4-35.8); MEAN PLATELET VOLUME 7.3 fL (7.4-10.4); MONOCYTES % (AUTO) 10 % (2-9); NEUTROPHILS % (AUTO) 47 % (42-75); PLATELET COUNT 203 x10^3/uL (130-400); RED BLOOD COUNT 4.18 x10^6/uL (3.82-5.3); RED CELL DISTRIBUTION WIDTH 19.1 % (9.6-15.2)
[2020-10-27 05:39] LABS: ANION GAP 3 mmol/L (5-15); CALCIUM 7.3 mg/dL (8.5-10.1); CHLORIDE 113 mmol/L (98-107); CREATININE 0.39 mg/dL (0.55-1.02)
[2020-10-27 06:01] LABS: MD NO
[2020-10-27 06:42] VITALS: BP 135/77
[2020-10-27] MEDS: METHADONE 5 MG TABLET PO SCH (07:50)
[2020-10-27] MEDS: TIZANIDINE 4MG TABLET PO PRN ×2 (07:51→15:57)
[2020-10-27] MEDS: METOPROLOL TARTRATE 50 MG TAB PO SCH ×2 (07:51→20:16)
[2020-10-27] MEDS: POTASSIUM CHLORIDE 20 MEQ TAB.ER.PRT PO SCH ×2 (07:51→12:05)
[2020-10-27] MEDS: MULTIVITAMIN 1 TABLET PO SCH (07:51)
[2020-10-27] MEDS: INSULIN GLARGINE 100 UNITS/ML, PEN SQ-INSULIN SCH ×2 (08:12→20:32)
[2020-10-27] MEDS: ENOXAPARIN 40 MG/0.4 ML SQ SCH (08:13)
[2020-10-27] MEDS: INSULIN LISPRO 100 UNITS/ML, PEN SQ-INSULIN SCH ×4 (08:15→20:32)
[2020-10-27] MEDS: ONDANSETRON 2MG/ML, 2ML IV PRN (10:41)
[2020-10-27] MEDS ORDERED: MAGNESIUM SULFATE PMX 2GM/50ML 50 ML IV ONE (13:30)
[2020-10-27 13:41] VITALS: BP 146/78
[2020-10-27] MEDS: POTASSIUM ACID PHOSPHATE 500 MG TABLET.SOL PO SCH ×2 (16:13→22:13)
[2020-10-27 18:55] VITALS: BP 134/78
[2020-10-27 20:14] VITALS: BP 156/93
[2020-10-27] MEDS: AMITRIPTYLINE 75 MG TABLET PO SCH (20:15)
[2020-10-27] MEDS: FERROUS SULFATE 325 MG TABLET PO SCH (20:15)
[2020-10-27] MEDS: MAGNESIUM OXIDE 400 MG TABLET PO SCH (20:16)
[2020-10-28] MEDS: OXYcodone IR 5MG TABLET PO PRN ×5 (00:27→16:38)
[2020-10-28 00:29] VITALS: BP 149/81
[2020-10-28] MEDS: GABAPENTIN 300 MG CAPSULE PO SCH ×3 (04:29→16:34)
[2020-10-28] MEDS: POTASSIUM ACID PHOSPHATE 500 MG TABLET.SOL PO SCH ×2 (04:30→11:04)
[2020-10-28 05:49] LABS: BASOPHILS % (AUTO) 0 % (0-1); EOSINOPHILS % (AUTO) 2 % (1-7); LYMPHOCYTES % (AUTO) 47 % (22-44); MEAN CORPUSCULAR HEMOGLOBIN 25.5 pg (27.0-34.8); MEAN CORPUSCULAR HGB CONC 32.6 g/dL (32.4-35.8); MEAN PLATELET VOLUME 7.5 fL (7.4-10.4); MONOCYTES % (AUTO) 9 % (2-9); NEUTROPHILS % (AUTO) 42 % (42-75); PLATELET COUNT 201 x10^3/uL (130-400); RED BLOOD COUNT 4.43 x10^6/uL (3.82-5.3); RED CELL DISTRIBUTION WIDTH 20.5 % (9.6-15.2)
[2020-10-28 05:50] LABS: CHLORIDE 109 mmol/L (98-107)
[2020-10-28 05:58] LABS: ANION GAP 5 mmol/L (5-15); CALCIUM 7.6 mg/dL (8.5-10.1); CHOL/HDL RATIO 2.5; CHOLESTEROL, TOTAL 147 mg/dL (140-239); CREATININE 0.35 mg/dL (0.55-1.02); HDL CHOL % 40 % (28-40); HDL CHOLESTEROL (DIRECT) 59 mg/dL (40-60); LDL CHOLESTEROL,CALCULATED 73 mg/dL (54-169); LDL/HDL RATIO 1.2 (0.5-3.0); TRIGLYCERIDES 74 mg/dL (50-200); VLDL CHOLESTEROL 15 mg/dL (0-25)
[2020-10-28 06:15] LABS: MD NO
[2020-10-28] MEDS: INSULIN LISPRO 100 UNITS/ML, PEN SQ-INSULIN SCH ×3 (07:00→16:52)
[2020-10-28 07:59] VITALS: BP 145/78
[2020-10-28] MEDS ORDERED: POTASSIUM CHLORIDE 20 MEQ TAB.ER.PRT PO ONE (08:30)
[2020-10-28] MEDS ORDERED: REGADENOSON 0.4 MG/5 ML SYRINGE ONE (09:14)
[2020-10-28] MEDS: MULTIVITAMIN 1 TABLET PO SCH (10:47)
[2020-10-28] MEDS: FERROUS SULFATE 325 MG TABLET PO SCH (10:47)
[2020-10-28] MEDS: METHADONE 5 MG TABLET PO SCH (10:47)
[2020-10-28] MEDS: MAGNESIUM OXIDE 400 MG TABLET PO SCH (10:48)
[2020-10-28] MEDS: METOPROLOL TARTRATE 50 MG TAB PO SCH (10:48)
[2020-10-28] MEDS: INSULIN GLARGINE 100 UNITS/ML, PEN SQ-INSULIN SCH (10:59)
[2020-10-28] MEDS: ENOXAPARIN 40 MG/0.4 ML SQ SCH (11:00)
[2020-10-28] MEDS: TIZANIDINE 4MG TABLET PO PRN (11:04)
[2020-10-28] MEDS ORDERED: INSU100I11 SQ-INSULIN (12:50)
[2020-10-28 13:52] VITALS: BP_SYST 134
== END 2020-10-28 18:12 | disposition home or self-care (01) | DRG 638 ==
LOC: ED 09:18 → EDIP 09:51 → CCU 11:09 → 3N 10-26 10:27
PROVIDERS: ADMIT Internal Medicine; ATTEND Internal Medicine
DX: E10.10 Type 1 diabetes mellitus with ketoacidosis without coma (principal); E87.1 Hypo-osmolality and hyponatremia; F11.20 Opioid dependence, uncomplicated; D72.828 Other elevated white blood cell count; E03.9 Hypothyroidism, unspecified; E05.90 Thyrotoxicosis, unspecified without thyrotoxic crisis or storm; G89.29 Other chronic pain; I10 Essential (primary) hypertension; I25.2 Old myocardial infarction; Z82.49 Family history of ischemic heart disease and other diseases of the circulatory system; Z88.6 Allergy status to analgesic agent; Z88.8 Allergy status to other drugs, medicaments and biological substances; Z83.3 Family history of diabetes mellitus; Z90.49 Acquired absence of other specified parts of digestive tract
CPT/HCPCS: 36415; 71045; 78452; 80048; 80053; 80061; 80307; 81001; 82010; 82728; 82800; 82962; 83036; 83540; 83550; 83690; 83735; 83880; 84100; 84439; 84443; 84484; 84703; 85025; 85379; 87081; 93005; 93017; 93306; 96374; G0378; J1650; J2405; J2785; A9502; J1815; J2270; J2765; J3475; J3480; J7030

== ENCOUNTER 2020-11-26 18:10 | Inpatient (IN) | payer MEDICAID ==
[~2020-11-26] VITALS: Ht 162.6 cm; Wt 62.0 kg
[~2020-11-26 18:10] MED LIST changes: +INSU100I11 SQ-INSULIN; +TIZA4TAB2 PO
--- NOTE | 2020-11-26 18:30 | NUR ---
PT ON ALL ROOM MONITORING. EKG COMPLETED ON ARRIVAL. PT RATES PAIN AT 10/10, DESCRIBED PRESSURE, ONSET ONE HOUR RENTAL COORDINATOR WHILE LYING ON BED/RESTING. SOB AND NAUSEA WITH SS PAIN RADIATING TO BACK. PT REPORTS NO RECENT ILLNESS BUT FELT FATIGUE TODAY AT AROUND NOON. 22 GUAGE TO L HAND RENTAL COORDINATOR, ATTEMPT TO START 2ND IV.
--- NOTE | 2020-11-26 18:44 | NUR ---
ASSUMED CARE OF PATIENT. DR LOMAS TO BEDSIDE.
[2020-11-26] MEDS: SODIUM CHLORIDE 0.9% 1,000 ML IV ONE ×2 (18:47→19:26)
[2020-11-26] MEDS ORDERED: MORPHINE SULFATE 4 MG/ML, 1ML ONE ×3 (18:49→22:38)
[2020-11-26] MEDS ORDERED: ONDANSETRON 2MG/ML, 2ML ONE (18:49)
[2020-11-26] MEDS: MORPHINE SULFATE 4 MG/ML, 1ML IVPush PRN ×2 (18:51→19:25)
--- NOTE | 2020-11-26 18:54 | NUR ---
2ND IV PLACED, LABS DRAWN WITH START. PCXR COMPLETED. PT MEDICATED FOR 10/10 CHEST PAIN AND NAUSEA. IVF BOLUS INFUSING. LAB IN TO DRAW OTHER ORDERED LABS.
[2020-11-26] MEDS ORDERED: SODIUM CHLORIDE FLUSH 10ML SYR IVF ONE (19:00)
[2020-11-26] MEDS ORDERED: SODIUM CHLORIDE 0.9% 1,000ML IVBOLUS ONE ×2 (19:00→22:00)
[2020-11-26] MEDS ORDERED: ONDANSETRON 2MG/ML, 2ML IVPush ONE (19:00)
[2020-11-26 19:07] LABS: BASOPHILS % (AUTO) 0 % (0-1); EOSINOPHILS % (AUTO) 0 % (1-7); LYMPHOCYTES % (AUTO) 35 % (22-44); MEAN CORPUSCULAR HEMOGLOBIN 24.2 pg (27.0-34.8); MEAN CORPUSCULAR HGB CONC 32.1 g/dL (32.4-35.8); MEAN PLATELET VOLUME 7.9 fL (7.4-10.4); MONOCYTES % (AUTO) 7 % (2-9); NEUTROPHILS % (AUTO) 57 % (42-75); PLATELET COUNT 299 x10^3/uL (130-400); RED BLOOD COUNT 5.74 x10^6/uL (3.82-5.3); RED CELL DISTRIBUTION WIDTH 18.5 % (9.6-15.2)
[2020-11-26 19:18] LABS: ALANINE AMINOTRANSFERASE 23 U/L (12-78); ALBUMIN 4.1 g/dL (3.4-5.0); ANION GAP 21 mmol/L (5-15); CALCIUM 8.7 mg/dL (8.5-10.1); CHLORIDE 98 mmol/L (98-107); CREATININE 0.69 mg/dL (0.55-1.02)
[2020-11-26 19:23] LABS: ALKALINE PHOSPHATASE 151 U/L (45-117); BILIRUBIN,TOTAL 0.9 mg/dL (0.2-1.0); TOTAL PROTEIN 8.6 g/dL (6.4-8.2)
[2020-11-26 19:30] LABS: ACETONE, SERUM Large (80mg/dL) (Negative)
--- NOTE | 2020-11-26 19:37 | NUR ---
PT WENT TO CT. CAMERON IGLESIAS TO GO WITH PATIENT.
[2020-11-26] MEDS ORDERED: OMNIPAQUE 350 MG/ML, 75ML BOTTLE ONE (19:55)
[2020-11-26] MEDS ORDERED: METOPROLOL 1 MG/ML, 5ML ONE (19:59)
[2020-11-26] MEDS ORDERED: METOPROLOL 1 MG/ML, 5ML IVPush ONE (20:00)
--- NOTE | 2020-11-26 20:13 | NUR ---
AT BEDSIDE. BRICK WASHER ON. PULSE OX ON. CALL LIGHT IN PLACE. WILL CONTINUE TO MONITOR.
[2020-11-26 20:35] LABS: TROPONIN I < 0.015 ng/mL (0.000-0.045)
--- NOTE | 2020-11-26 21:19 | NUR ---
PT REQUESTING PAIN MEDS DR LOMAS AWARE.
[2020-11-26] MEDS ORDERED: SODIUM CHLORIDE 0.9% 1,000 ML IV ONE (21:30)
[2020-11-26] MEDS ORDERED: SODIUM CHLORIDE FLUSH 10ML SYR IVF PRN (21:30)
[2020-11-26 21:58] LABS: MICROSCOPIC NOT IND
[2020-11-26] MEDS ORDERED: INSU100V8 SQ (22:04)
[2020-11-26] MEDS ORDERED: AMIT100T PO (22:05)
--- NOTE | 2020-11-26 22:06 | NUR ---
THROUGHPUT RN::DR. MUIR AWARE OF PT.
[2020-11-26] MEDS ORDERED: OXYC10TA6 PO (22:07)
[2020-11-26] MEDS: morphine SULFATE 10 MG/ML, 1ML IV PRN (22:41)
--- NOTE | 2020-11-26 23:07 | NUR ---
DR MUIR IN ROOM.
[2020-11-26 23:13] LABS: ANION GAP 15 mmol/L (5-15); CALCIUM 7.2 mg/dL (8.5-10.1); CHLORIDE 108 mmol/L (98-107); CREATININE 0.47 mg/dL (0.55-1.02)
[2020-11-26] MEDS: INSULIN LISPRO 100 UNITS/ML, PEN SQ-INSULIN SCH (23:30)
[2020-11-26] MEDS: AMITRIPTYLINE 50 MG TABLET PO SCH (23:30)
[2020-11-26] MEDS ORDERED: LABETALOL 5MG/ML, 20ML IVPush PRN (23:30)
[2020-11-27] VITALS (9 sets, daily range): BP systolic 105–137; BP diastolic 61–88
[2020-11-27] MEDS ORDERED: AMITRIPTYLINE 25 MG TABLET ONE (00:34)
[2020-11-27] MEDS: GABAPENTIN 300 MG CAPSULE PO SCH ×5 (00:46→21:11)
[2020-11-27] MEDS: OXYcodone IR 5MG TABLET PO SCH ×6 (00:48→22:09)
[2020-11-27] MEDS: LACTATED RINGERS 1,000 ML IV SCH ×3 (00:48→16:04)
[2020-11-27] MEDS: METOPROLOL TARTRATE 25 MG TAB PO SCH ×3 (00:48→21:13)
[2020-11-27] MEDS: INSULIN GLARGINE 100 UNITS/ML, PEN SQ-INSULIN SCH ×2 (01:27→21:30)
[2020-11-27] MEDS: morphine SULFATE 10 MG/ML, 1ML IV PRN ×3 (02:10→21:12)
[2020-11-27] MEDS: TIZANIDINE 4MG TABLET PO SCH ×4 (04:01→21:12)
[2020-11-27 04:09] LABS: TROPONIN I < 0.015 ng/mL (0.000-0.045)
[2020-11-27] MEDS ORDERED: NITROGLYCERIN 0.4 MG BOTTLE (25 TABS) SL ONE (04:39)
[2020-11-27] MEDS: NITROGLYCERIN 0.4 MG BOTTLE (25 TABS) SL PRN ×3 (04:42→05:01)
[2020-11-27] MEDS ORDERED: NITROGLYCERIN 0.4 MG/SPRAY SL PRN (05:00)
[2020-11-27 05:29] LABS: BASOPHILS % (AUTO) 0 % (0-1); EOSINOPHILS % (AUTO) 3 % (1-7); LYMPHOCYTES % (AUTO) 45 % (22-44); MEAN CORPUSCULAR HGB CONC 31.9 g/dL (32.4-35.8); MEAN PLATELET VOLUME 7.8 fL (7.4-10.4); MONOCYTES % (AUTO) 6 % (2-9); NEUTROPHILS % (AUTO) 46 % (42-75); PLATELET COUNT 230 x10^3/uL (130-400); RED BLOOD COUNT 4.52 x10^6/uL (3.82-5.3); RED CELL DISTRIBUTION WIDTH 18.1 % (9.6-15.2)
[2020-11-27 05:39] LABS: CALCIUM 7.7 mg/dL (8.5-10.1); CHLORIDE 108 mmol/L (98-107)
[2020-11-27 05:48] LABS: ANION GAP 8 mmol/L (5-15); TROPONIN I < 0.015 ng/mL (0.000-0.045)
[2020-11-27] MEDS: METHADONE 5 MG TABLET PO SCH (09:10)
[2020-11-27] MEDS: SENNA/DOCUSATE TABLET PO SCH (09:10)
[2020-11-27] MEDS: PANTOPRAZOLE 40MG TABLET PO SCH ×2 (09:12→17:16)
[2020-11-27] MEDS: INSULIN LISPRO 100 UNITS/ML, PEN SQ-INSULIN SCH ×4 (09:13→21:30)
[2020-11-27] MEDS: ONDANSETRON 2MG/ML, 2ML IVPush PRN (15:22)
[2020-11-27] MEDS: AMITRIPTYLINE 50 MG TABLET PO SCH (21:11)
[2020-11-28 00:55] VITALS: BP 133/76
[2020-11-28] MEDS: OXYcodone IR 5MG TABLET PO SCH ×6 (02:35→22:55)
[2020-11-28] MEDS: morphine SULFATE 10 MG/ML, 1ML IV PRN ×5 (04:28→21:29)
[2020-11-28] MEDS: LACTATED RINGERS 1,000 ML IV SCH (04:28)
[2020-11-28] MEDS: TIZANIDINE 4MG TABLET PO SCH ×4 (04:28→21:29)
[2020-11-28 05:10] LABS: BASOPHILS % (AUTO) 1 % (0-1); EOSINOPHILS % (AUTO) 6 % (1-7); LYMPHOCYTES % (AUTO) 43 % (22-44); MEAN CORPUSCULAR HEMOGLOBIN 24.1 pg (27.0-34.8); MEAN CORPUSCULAR HGB CONC 32.3 g/dL (32.4-35.8); MEAN PLATELET VOLUME 7.7 fL (7.4-10.4); MONOCYTES % (AUTO) 8 % (2-9); NEUTROPHILS % (AUTO) 42 % (42-75); PLATELET COUNT 219 x10^3/uL (130-400); RED BLOOD COUNT 4.46 x10^6/uL (3.82-5.3); RED CELL DISTRIBUTION WIDTH 18.4 % (9.6-15.2)
[2020-11-28 05:13] LABS: ANION GAP 4 mmol/L (5-15); CHLORIDE 109 mmol/L (98-107); CREATININE 0.42 mg/dL (0.55-1.02)
[2020-11-28 06:38] VITALS: BP 103/66
[2020-11-28] MEDS: GABAPENTIN 300 MG CAPSULE PO SCH ×4 (06:45→21:29)
[2020-11-28] MEDS: SENNA/DOCUSATE TABLET PO SCH (08:10)
[2020-11-28] MEDS: METHADONE 5 MG TABLET PO SCH (08:10)
[2020-11-28] MEDS: METOPROLOL TARTRATE 25 MG TAB PO SCH ×2 (08:10→21:29)
[2020-11-28] MEDS: PANTOPRAZOLE 40MG TABLET PO SCH ×2 (08:10→17:05)
[2020-11-28] MEDS ORDERED: MAGNESIUM SULFATE PMX 2GM/50ML 50 ML IV ONE (08:30)
[2020-11-28] MEDS ORDERED: POTASSIUM CHLORIDE 20 MEQ TAB.ER.PRT PO ONE (08:30)
[2020-11-28] MEDS: INSULIN LISPRO 100 UNITS/ML, PEN SQ-INSULIN SCH ×4 (09:27→21:28)
[2020-11-28 12:35] VITALS: BP 123/75
[2020-11-28 19:07] VITALS: BP 115/72
[2020-11-28] MEDS: INSULIN GLARGINE 100 UNITS/ML, PEN SQ-INSULIN SCH (21:28)
[2020-11-28] MEDS: AMITRIPTYLINE 50 MG TABLET PO SCH (21:29)
[2020-11-29 01:36] VITALS: BP 107/66
[2020-11-29] MEDS: TIZANIDINE 4MG TABLET PO SCH ×4 (02:44→20:07)
[2020-11-29] MEDS: OXYcodone IR 5MG TABLET PO SCH ×6 (02:44→23:05)
[2020-11-29] MEDS: morphine SULFATE 10 MG/ML, 1ML IV PRN ×5 (04:51→21:35)
[2020-11-29] MEDS: GABAPENTIN 300 MG CAPSULE PO SCH ×4 (06:44→20:07)
[2020-11-29 07:30] VITALS: BP 108/70
[2020-11-29] MEDS: SENNA/DOCUSATE TABLET PO SCH (08:42)
[2020-11-29] MEDS: METHADONE 5 MG TABLET PO SCH (08:42)
[2020-11-29] MEDS: METOPROLOL TARTRATE 25 MG TAB PO SCH ×2 (08:42→20:08)
[2020-11-29] MEDS: PANTOPRAZOLE 40MG TABLET PO SCH ×2 (08:42→17:43)
[2020-11-29] MEDS: INSULIN LISPRO 100 UNITS/ML, PEN SQ-INSULIN SCH ×3 (11:32→21:23)
[2020-11-29] MEDS: ONDANSETRON 2MG/ML, 2ML IVPush PRN (13:32)
[2020-11-29 13:50] VITALS: BP 122/74
[2020-11-29] MEDS ORDERED: INSULIN LISPRO 100 UNIT/ML, 3ML VIAL SQ-INSULIN ONE (18:00)
[2020-11-29 19:00] VITALS: BP 115/75
[2020-11-29] MEDS: AMITRIPTYLINE 50 MG TABLET PO SCH (20:07)
[2020-11-29] MEDS: INSULIN GLARGINE 100 UNITS/ML, PEN SQ-INSULIN SCH (21:23)
[2020-11-30] MEDS: morphine SULFATE 10 MG/ML, 1ML IV PRN ×6 (00:57→22:57)
[2020-11-30 01:06] VITALS: BP 111/76
[2020-11-30] MEDS: TIZANIDINE 4MG TABLET PO SCH ×4 (03:06→21:34)
[2020-11-30] MEDS: OXYcodone IR 5MG TABLET PO SCH ×5 (03:06→21:35)
[2020-11-30] MEDS: GABAPENTIN 300 MG CAPSULE PO SCH ×4 (05:20→21:35)
[2020-11-30 06:32] VITALS: BP 101/78
[2020-11-30] MEDS: SENNA/DOCUSATE TABLET PO SCH (08:40)
[2020-11-30] MEDS: METOPROLOL TARTRATE 25 MG TAB PO SCH ×2 (08:40→21:35)
[2020-11-30] MEDS: METHADONE 5 MG TABLET PO SCH (08:40)
[2020-11-30] MEDS: PANTOPRAZOLE 40MG TABLET PO SCH ×2 (08:41→16:30)
[2020-11-30] MEDS: INSULIN LISPRO 100 UNITS/ML, PEN SQ-INSULIN SCH ×4 (08:42→21:47)
[2020-11-30 13:15] VITALS: BP 145/75
[2020-11-30 13:23] VITALS: BP 111/72
[2020-11-30 18:18] VITALS: BP 108/69
[2020-11-30] MEDS: AMITRIPTYLINE 50 MG TABLET PO SCH (21:35)
[2020-11-30] MEDS: INSULIN GLARGINE 100 UNITS/ML, PEN SQ-INSULIN SCH (21:46)
[2020-11-30 22:33] VITALS: BP 121/80
[2020-12-01] MEDS: OXYcodone IR 5MG TABLET PO SCH ×7 (00:58→20:40)
[2020-12-01 01:20] VITALS: BP 103/68
[2020-12-01] MEDS: TIZANIDINE 4MG TABLET PO SCH ×6 (03:53→20:50)
[2020-12-01] MEDS: morphine SULFATE 10 MG/ML, 1ML IV PRN ×5 (04:01→18:34)
[2020-12-01] MEDS: GABAPENTIN 300 MG CAPSULE PO SCH ×4 (05:54→20:37)
[2020-12-01 06:58] VITALS: BP 99/62
[2020-12-01] MEDS: INSULIN LISPRO 100 UNITS/ML, PEN SQ-INSULIN SCH ×4 (07:00→20:50)
[2020-12-01] MEDS: SENNA/DOCUSATE TABLET PO SCH ×2 (09:20→12:02)
[2020-12-01] MEDS: METHADONE 5 MG TABLET PO SCH ×2 (09:20→11:58)
[2020-12-01] MEDS: METOPROLOL TARTRATE 25 MG TAB PO SCH ×3 (09:21→22:20)
[2020-12-01] MEDS: PANTOPRAZOLE 40MG TABLET PO SCH ×3 (09:21→17:14)
[2020-12-01] MEDS ORDERED: CHLORHEXIDINE 15 ML UDC PO ONE (10:00)
[2020-12-01] MEDS ORDERED: PROPOFOL 50 ML ONE (10:05)
[2020-12-01 10:08] LABS: HCG UR SG 1.009 (1.003-1.030)
[2020-12-01] MEDS ORDERED: OXYcodone 5 MG/5 ML ORAL.SOL UDC PO PRN (11:00)
[2020-12-01] MEDS ORDERED: ONDANSETRON 2MG/ML, 2ML IVPush PRN (11:00)
[2020-12-01] MEDS ORDERED: HYDROmorphone 1 MG/ML, 1ML INJ IVPush PRN (11:00)
[2020-12-01] MEDS ORDERED: ACETAMINOPHEN 325 MG TABLET PO PRN (11:00)
[2020-12-01] MEDS ORDERED: FENTANYL PF 100 MCG/2ML IV PRN (11:00)
[2020-12-01 12:06] VITALS: BP 102/70
[2020-12-01 12:47] VITALS: BP 113/65
[2020-12-01 19:11] VITALS: BP 112/70
[2020-12-01] MEDS: AMITRIPTYLINE 50 MG TABLET PO SCH (20:37)
[2020-12-01] MEDS: ONDANSETRON 2MG/ML, 2ML IVPush PRN (20:50)
[2020-12-01] MEDS: INSULIN GLARGINE 100 UNITS/ML, PEN SQ-INSULIN SCH (22:21)
[2020-12-02] MEDS: OXYcodone IR 5MG TABLET PO SCH ×4 (01:13→12:57)
[2020-12-02 01:18] VITALS: BP 118/78
[2020-12-02] MEDS: TIZANIDINE 4MG TABLET PO SCH ×3 (02:58→15:18)
[2020-12-02] MEDS: GABAPENTIN 300 MG CAPSULE PO SCH ×2 (06:08→11:44)
[2020-12-02 07:40] VITALS: BP 95/59
[2020-12-02] MEDS: morphine SULFATE 10 MG/ML, 1ML IV PRN ×3 (07:48→15:19)
[2020-12-02] MEDS: INSULIN LISPRO 100 UNITS/ML, PEN SQ-INSULIN SCH ×2 (07:49→11:45)
[2020-12-02] MEDS: PANTOPRAZOLE 40MG TABLET PO SCH (07:55)
[2020-12-02] MEDS ORDERED: SODIUM CHLORIDE 0.9% 1,000ML IV ONE (08:30)
[2020-12-02] MEDS: SENNA/DOCUSATE TABLET PO SCH (09:08)
[2020-12-02] MEDS: METHADONE 5 MG TABLET PO SCH (09:08)
[2020-12-02 11:02] VITALS: BP 94/61
[2020-12-02] MEDS ORDERED: OXYC10TA6 PO (14:27)
[2020-12-02] MEDS ORDERED: PANT40TA6 PO (14:27)
[2020-12-02 14:30] VITALS: BP 105/60
[2020-12-02 14:45] VITALS: BP 123/76
[2020-12-02] MEDS ORDERED: METOPROLOL TARTRATE 25 MG TAB PO SCH (21:00)
== END 2020-12-02 16:00 | disposition home or self-care (01) | DRG 391 ==
LOC: ED 19:19 → EDIP 21:22 → 5SO 23:56 → 4NW 11-30 22:18 → 3N 12-01 06:39 → DCLOUNGE 12-02 15:57
PROVIDERS: ADMIT Family Medicine; ATTEND Family Medicine
PROC: 0DB68ZX Excision of Stomach, Via Natural or Artificial Opening Endoscopic, Diagnostic (ICD-10-PCS; principal; 2020-12-01 13:00)
DX: K21.9 Gastro-esophageal reflux disease without esophagitis (principal); E10.10 Type 1 diabetes mellitus with ketoacidosis without coma; E87.1 Hypo-osmolality and hyponatremia; F11.20 Opioid dependence, uncomplicated; Z20.822 Contact with and (suspected) exposure to COVID-19; F17.210 Nicotine dependence, cigarettes, uncomplicated; I10 Essential (primary) hypertension; E03.9 Hypothyroidism, unspecified; G89.29 Other chronic pain; I35.0 Nonrheumatic aortic (valve) stenosis; K44.9 Diaphragmatic hernia without obstruction or gangrene; Z79.4 Long term (current) use of insulin; I25.2 Old myocardial infarction; Z79.899 Other long term (current) drug therapy; Z90.49 Acquired absence of other specified parts of digestive tract; Z88.6 Allergy status to analgesic agent; Z88.8 Allergy status to other drugs, medicaments and biological substances; Z88.5 Allergy status to narcotic agent
CPT/HCPCS: 36415; 71045; 71275; 72072; 74240; 80048; 80053; 81003; 81025; 82010; 82533; 82607; 82800; 82947; 82962; 83036; 83690; 83735; 83880; 83930; 84100; 84443; 84484; 85025; 87040; 87635; 88305; 93005; 93308; 93321; 93325; 96374; G0378; J2405; J2704; Q9967; J1815; J2270; J3475; J7030; J7120

== ENCOUNTER 2020-12-25 22:23 | Inpatient (IN) | payer MEDICAID, OTHER ==
[~2020-12-25] VITALS: Ht 162.6 cm; Wt 58.6 kg
[~2020-12-25 22:23] MED LIST changes: +AMIT100T PO; +PANT40TA6 PO
--- NOTE | 2020-12-25 22:34 | NUR ---
PT C/O OF STERNAL CP THT FEELS LIKE PRESSURE AND DOES NOT RADIATE [place]. PT BS 377 UPON [facility]. EKG AT BEDSIDE. ATTACGHED TO CARD/BP/SP02 MONITORS BED IN LOW POITION, RAILS ENGAGED. CALL LIGHT ON LAP. PT PPEARS IN PAIN. WCTM Addendum: 12/25/20 at 2321 by [email or web address] PT RECEIEVED 1L NS AND 4MG ZOFRAN SUPERVISOR PATCHING
[2020-12-25] MEDS ORDERED: METOCLOPRAMIDE 5 MG/ML, 2ML IVPush ONE (23:00)
[2020-12-25] MEDS ORDERED: SODIUM CHLORIDE FLUSH 10ML SYR IVF ONE (23:00)
[2020-12-25] MEDS ORDERED: DIPHENHYDRAMINE 50 MG/ML, 1ML IVPush ONE ×2 (23:00→23:30)
[2020-12-25 23:02] LABS: PH, VENOUS 7.262 pH (7.320-7.420)
[2020-12-25 23:04] LABS: BASOPHILS % (AUTO) 0 % (0-1); EOSINOPHILS % (AUTO) 0 % (1-7); LYMPHOCYTES % (AUTO) 19 % (22-44); MEAN CORPUSCULAR HEMOGLOBIN 22.6 pg (27.0-34.8); MEAN CORPUSCULAR HGB CONC 31.5 g/dL (32.4-35.8); MEAN PLATELET VOLUME 7.4 fL (7.4-10.4); MONOCYTES % (AUTO) 5 % (2-9); NEUTROPHILS % (AUTO) 75 % (42-75); PLATELET COUNT 262 x10^3/uL (130-400); RED BLOOD COUNT 5.44 x10^6/uL (3.82-5.3); RED CELL DISTRIBUTION WIDTH 18.4 % (9.6-15.2)
[2020-12-25] MEDS ORDERED: METOCLOPRAMIDE 5 MG/ML, 2ML ONE (23:11)
[2020-12-25] MEDS ORDERED: DIPHENHYDRAMINE 50 MG/ML, 1ML ONE (23:11)
[2020-12-25] MEDS ORDERED: MORPHINE SULFATE 4 MG/ML, 1ML ONE (23:11)
[2020-12-25 23:14] LABS: ALANINE AMINOTRANSFERASE 22 U/L (12-78); ALBUMIN 3.9 g/dL (3.4-5.0); ANION GAP 14 mmol/L (5-15); CALCIUM 8.2 mg/dL (8.5-10.1); CHLORIDE 101 mmol/L (98-107); CREATININE 0.76 mg/dL (0.55-1.02)
[2020-12-25] MEDS: MORPHINE SULFATE 4 MG/ML, 1ML IVPush PRN (23:16)
[2020-12-25 23:18] LABS: ALKALINE PHOSPHATASE 152 U/L (45-117); BILIRUBIN,TOTAL 0.7 mg/dL (0.2-1.0); TOTAL PROTEIN 8.6 g/dL (6.4-8.2); TROPONIN I < 0.015 ng/mL (0.000-0.045)
[2020-12-25] MEDS ORDERED: SODIUM CHLORIDE 0.9% 1,000ML IVBOLUS ONE (23:30)
[2020-12-26] MEDS ORDERED: POTASSIUM CHLORIDE 40 MEQ in SODIUM CHLORIDE 0.9% 1,000 ML IV ONE
[2020-12-26 00:03] LABS: ACETONE, SERUM Large (80mg/dL) (Negative)
[2020-12-26] MEDS ORDERED: MORPHINE SULFATE 4 MG/ML, 1ML ONE (00:19)
[2020-12-26] MEDS: MORPHINE SULFATE 4 MG/ML, 1ML IVPush PRN (00:25)
[2020-12-26] MEDS ORDERED: DEXTROSE 50%, 50ML SYRINGE IVPush PRN (00:30)
[2020-12-26] MEDS ORDERED: DEXTROSE 4 GM TAB.CHEW PO PRN (00:30)
[2020-12-26] MEDS ORDERED: REGULAR INSULIN 100 UNITS in SODIUM CHLORIDE 0.9% 99 ML IV PRN ×2 (00:30)
[2020-12-26] MEDS: SODIUM CHLORIDE 0.9% 1,000 ML IV SCH ×3 (00:30→09:54)
[2020-12-26] MEDS ORDERED: ACETAMINOPHEN 325 MG TABLET PO PRN (00:30)
[2020-12-26] MEDS ORDERED: GLUCAGON 1 MG IM PRN (00:30)
--- NOTE | 2020-12-26 00:31 | NUR ---
INSULIN GTT STARTED AND VERIFIED WITH PEG BARNES AT THIS TIME FSBS 324
--- NOTE | 2020-12-26 00:52 | NUR ---
REPORT TO BERKLEY BARNES PT READY FOR TRANSFER ALL QUESTIONS ADDRESSED.
[2020-12-26 01:02] LABS: ANION GAP 12 mmol/L (5-15); CALCIUM 7.8 mg/dL (8.5-10.1); CHLORIDE 107 mmol/L (98-107); CREATININE 0.54 mg/dL (0.55-1.02)
[2020-12-26 01:07] LABS: TROPONIN I < 0.015 ng/mL (0.000-0.045)
[2020-12-26] MEDS: OXYcodone IR 5MG TABLET PO SCH ×6 (01:27→20:40)
[2020-12-26] MEDS: morphine SULFATE 10 MG/ML, 1ML IVPush PRN ×7 (01:29→21:45)
[2020-12-26] MEDS: ENOXAPARIN 40 MG/0.4 ML SQ SCH (01:32)
[2020-12-26] MEDS: D5%-0.45NACL+KCL 20MEQ 1,000 ML IV SCH ×2 (01:43→09:30)
[2020-12-26 04:44] LABS: BASOPHILS % (AUTO) 1 % (0-1); EOSINOPHILS % (AUTO) 1 % (1-7); LYMPHOCYTES % (AUTO) 37 % (22-44); MEAN CORPUSCULAR HEMOGLOBIN 22.3 pg (27.0-34.8); MEAN CORPUSCULAR HGB CONC 31.6 g/dL (32.4-35.8); MEAN PLATELET VOLUME 7.4 fL (7.4-10.4); MONOCYTES % (AUTO) 6 % (2-9); NEUTROPHILS % (AUTO) 56 % (42-75); PLATELET COUNT 236 x10^3/uL (130-400); RED BLOOD COUNT 4.76 x10^6/uL (3.82-5.3)
[2020-12-26 04:50] LABS: ANION GAP 5 mmol/L (5-15); CALCIUM 7.7 mg/dL (8.5-10.1); CHLORIDE 112 mmol/L (98-107); CREATININE 0.49 mg/dL (0.55-1.02)
[2020-12-26 04:55] LABS: TROPONIN I < 0.015 ng/mL (0.000-0.045)
[2020-12-26] MEDS: GABAPENTIN 300 MG CAPSULE PO SCH ×4 (05:52→20:40)
[2020-12-26 07:26] LABS: FREE T4 (FREE THYROXINE) 1.18 ng/dL (0.76-1.46)
[2020-12-26] MEDS: POTASSIUM CHLORIDE 20 MEQ TAB.ER.PRT PO SCH ×2 (08:41→17:03)
[2020-12-26] MEDS: MULTIVITAMIN 1 TABLET PO SCH (08:41)
[2020-12-26] MEDS: IRON SUCROSE COMPLEX 100MG/5ML IV SCH (08:42)
[2020-12-26] MEDS: METOPROLOL TARTRATE 25 MG TAB PO SCH ×2 (08:42→20:40)
[2020-12-26] MEDS: SODIUM CHLORIDE FLUSH 10ML SYR IVF SCH ×2 (08:42→21:49)
[2020-12-26] MEDS: PANTOPRAZOLE 40MG TABLET PO SCH ×2 (08:42→17:03)
[2020-12-26] MEDS: METHADONE 5 MG TABLET PO SCH (08:42)
[2020-12-26 09:10] LABS: ANION GAP 6 mmol/L (5-15); CHLORIDE 114 mmol/L (98-107); CREATININE 0.51 mg/dL (0.55-1.02)
[2020-12-26] MEDS ORDERED: SODIUM CHLORIDE 0.9% 1,000 ML IV SCH (12:00)
[2020-12-26] MEDS: INSULIN GLARGINE 100 UNITS/ML, PEN SQ-INSULIN SCH ×2 (12:37→20:41)
[2020-12-26] MEDS: INSULIN LISPRO 100 UNITS/ML, PEN SQ-INSULIN SCH ×3 (12:38→20:42)
[2020-12-26] MEDS: ONDANSETRON 2MG/ML, 2ML IVPush PRN ×2 (14:03→21:47)
[2020-12-26 19:41] VITALS: BP 118/78
[2020-12-26] MEDS: AMITRIPTYLINE 50 MG TABLET PO SCH (20:40)
[2020-12-26] MEDS: TIZANIDINE 4MG TABLET PO PRN (21:47)
[2020-12-27 00:17] VITALS: BP 91/57
[2020-12-27] MEDS: morphine SULFATE 10 MG/ML, 1ML IVPush PRN ×7 (00:25→23:38)
[2020-12-27] MEDS: OXYcodone IR 5MG TABLET PO SCH ×6 (00:26→22:13)
[2020-12-27 01:02] VITALS: BP 93/58
[2020-12-27 05:42] LABS: ANION GAP 4 mmol/L (5-15); CALCIUM 8.4 mg/dL (8.5-10.1); CHLORIDE 110 mmol/L (98-107); CREATININE 0.51 mg/dL (0.55-1.02)
[2020-12-27] MEDS: GABAPENTIN 300 MG CAPSULE PO SCH ×4 (06:14→20:07)
[2020-12-27 07:05] VITALS: BP 98/61
[2020-12-27] MEDS: PANTOPRAZOLE 40MG TABLET PO SCH ×2 (07:33→16:56)
[2020-12-27] MEDS: IRON SUCROSE COMPLEX 100MG/5ML IV SCH (08:17)
[2020-12-27] MEDS: METOPROLOL TARTRATE 25 MG TAB PO SCH ×2 (08:18→20:08)
[2020-12-27] MEDS: MULTIVITAMIN 1 TABLET PO SCH (08:18)
[2020-12-27] MEDS: ONDANSETRON ODT 4 MG PO PRN ×2 (08:18→18:09)
[2020-12-27] MEDS: METHADONE 5 MG TABLET PO SCH (08:18)
[2020-12-27] MEDS: INSULIN GLARGINE 100 UNITS/ML, PEN SQ-INSULIN SCH ×2 (08:19→20:41)
[2020-12-27] MEDS: SODIUM CHLORIDE FLUSH 10ML SYR IVF SCH ×2 (08:19→20:08)
[2020-12-27] MEDS: INSULIN LISPRO 100 UNITS/ML, PEN SQ-INSULIN SCH ×4 (08:19→20:42)
[2020-12-27] MEDS: TIZANIDINE 4MG TABLET PO PRN ×2 (10:42→20:40)
[2020-12-27] MEDS ORDERED: MAGNESIUM SULFATE 1 GM in SODIUM CHLORIDE 0.9% 50 ML IV ONE (12:00)
[2020-12-27] MEDS: LACTATED RINGERS 1,000 ML IV SCH ×2 (13:02→22:18)
[2020-12-27 14:02] VITALS: BP 96/67
[2020-12-27] MEDS: AMITRIPTYLINE 50 MG TABLET PO SCH (20:07)
[2020-12-27 20:14] VITALS: BP 131/81
[2020-12-27] MEDS: ONDANSETRON 2MG/ML, 2ML IVPush PRN (22:13)
[2020-12-28 01:47] VITALS: BP 96/58
[2020-12-28] MEDS: OXYcodone IR 5MG TABLET PO SCH ×4 (01:58→14:12)
[2020-12-28] MEDS: morphine SULFATE 10 MG/ML, 1ML IVPush PRN ×2 (04:59→08:36)
[2020-12-28 06:02] LABS: BASOPHILS % (AUTO) 0 % (0-1); EOSINOPHILS % (AUTO) 3 % (1-7); LYMPHOCYTES % (AUTO) 45 % (22-44); MEAN CORPUSCULAR HEMOGLOBIN 22.5 pg (27.0-34.8); MEAN CORPUSCULAR HGB CONC 31.4 g/dL (32.4-35.8); MONOCYTES % (AUTO) 7 % (2-9); NEUTROPHILS % (AUTO) 44 % (42-75); PLATELET COUNT 218 x10^3/uL (130-400); RED CELL DISTRIBUTION WIDTH 18.1 % (9.6-15.2)
[2020-12-28] MEDS: TIZANIDINE 4MG TABLET PO PRN ×2 (06:11→14:12)
[2020-12-28] MEDS: GABAPENTIN 300 MG CAPSULE PO SCH ×2 (06:11→11:06)
[2020-12-28 06:13] LABS: ANION GAP 3 mmol/L (5-15); CALCIUM 8.4 mg/dL (8.5-10.1); CHLORIDE 108 mmol/L (98-107); CREATININE 0.51 mg/dL (0.55-1.02)
[2020-12-28] MEDS: MULTIVITAMIN 1 TABLET PO SCH (08:18)
[2020-12-28] MEDS: METHADONE 5 MG TABLET PO SCH (08:18)
[2020-12-28] MEDS: INSULIN GLARGINE 100 UNITS/ML, PEN SQ-INSULIN SCH (08:18)
[2020-12-28] MEDS: METOPROLOL TARTRATE 25 MG TAB PO SCH (08:21)
[2020-12-28] MEDS: IRON SUCROSE COMPLEX 100MG/5ML IV SCH (08:22)
[2020-12-28] MEDS: PANTOPRAZOLE 40MG TABLET PO SCH (08:22)
[2020-12-28] MEDS: INSULIN LISPRO 100 UNITS/ML, PEN SQ-INSULIN SCH ×2 (08:22→11:11)
[2020-12-28] MEDS: SODIUM CHLORIDE FLUSH 10ML SYR IVF SCH (08:30)
[2020-12-28 08:37] VITALS: BP 97/60
[2020-12-28] MEDS: ENOXAPARIN 40 MG/0.4 ML SQ SCH (08:37)
[2020-12-28] MEDS: LACTATED RINGERS 1,000 ML IV SCH (08:37)
[2020-12-28] MEDS: ONDANSETRON 2MG/ML, 2ML IVPush PRN (08:37)
[2020-12-28] MEDS ORDERED: DOCUSATE 100 MG CAPSULE PO SCH (10:00)
[2020-12-28] MEDS ORDERED: OXYC10TA6 PO (11:50)
[2020-12-28 13:16] VITALS: BP 116/72
[2020-12-28] MEDS ORDERED: OXYC5TAB98 PO (15:20)
== END 2020-12-28 17:15 | disposition home or self-care (01) | DRG 639 ==
LOC: SUATTDRO 23:38 → ED 23:39 → EDIP 12-26 00:44 → CCU 12-26 01:03 → 3N 12-26 18:18
PROVIDERS: ADMIT Student in an Organized Health Care Education/Training Program; ATTEND Family Medicine
DX: E11.10 Type 2 diabetes mellitus with ketoacidosis without coma (principal); E05.90 Thyrotoxicosis, unspecified without thyrotoxic crisis or storm; F17.200 Nicotine dependence, unspecified, uncomplicated; G89.29 Other chronic pain; I10 Essential (primary) hypertension; M54.9 Dorsalgia, unspecified; E87.8 Other disorders of electrolyte and fluid balance, not elsewhere classified; R07.89 Other chest pain; F19.10 Other psychoactive substance abuse, uncomplicated; Z88.1 Allergy status to other antibiotic agents; Z88.5 Allergy status to narcotic agent; Z88.8 Allergy status to other drugs, medicaments and biological substances
CPT/HCPCS: 36415; 71045; 80048; 80053; 82010; 82803; 82962; 83735; 84100; 84439; 84443; 84481; 84484; 84550; 85025; 87081; 93005; 96372; 96374; 96375; G0378; J1650; J1756; J2405; J3475; Q0162; J1200; J1815; J2270; J2765; J3480; J7030; J7120

== ENCOUNTER 2021-02-18 21:03 | Emergency (ER) | payer MEDICAID ==
[~2021-02-18] VITALS: Ht 162.6 cm; Wt 58.2 kg
[~2021-02-18 21:03] MED LIST changes: +METH-648 PO; -METH5TAB2 PO
[2021-02-18] MEDS ORDERED: ONDANSETRON 2MG/ML, 2ML IVPush ONE (22:00)
[2021-02-18] MEDS ORDERED: SODIUM CHLORIDE 0.9% 1,000ML IVBOLUS ONE ×2 (22:00→23:00)
[2021-02-18 22:04] LABS: PH, VENOUS 7.367 pH (7.320-7.420)
[2021-02-18] MEDS ORDERED: ONDANSETRON 2MG/ML, 2ML ONE (22:04)
[2021-02-18] MEDS ORDERED: MORPHINE SULFATE 4 MG/ML, 1ML ONE ×2 (22:05→23:09)
[2021-02-18 22:07] LABS: BASOPHILS % (AUTO) 1 % (0-1); EOSINOPHILS % (AUTO) 1 % (1-7); LYMPHOCYTES % (AUTO) 37 % (22-44); MEAN CORPUSCULAR HEMOGLOBIN 22.7 pg (27.0-34.8); MEAN CORPUSCULAR HGB CONC 31.7 g/dL (32.4-35.8); MEAN PLATELET VOLUME 7.5 fL (7.4-10.4); MONOCYTES % (AUTO) 8 % (2-9); NEUTROPHILS % (AUTO) 53 % (42-75); PLATELET COUNT 271 x10^3/uL (130-400); RED BLOOD COUNT 5.06 x10^6/uL (3.82-5.3); RED CELL DISTRIBUTION WIDTH 20.4 % (9.6-15.2)
[2021-02-18] MEDS: MORPHINE SULFATE 4 MG/ML, 1ML IVPush PRN ×2 (22:13→23:12)
[2021-02-18 22:18] LABS: ALANINE AMINOTRANSFERASE 21 U/L (12-78); ALBUMIN 3.1 g/dL (3.4-5.0); ANION GAP 10 mmol/L (5-15); CALCIUM 7.9 mg/dL (8.5-10.1); CHLORIDE 102 mmol/L (98-107); CREATININE 0.57 mg/dL (0.55-1.02)
[2021-02-18 22:22] LABS: ALKALINE PHOSPHATASE 139 U/L (45-117); BILIRUBIN,TOTAL 0.6 mg/dL (0.2-1.0); TOTAL PROTEIN 7.2 g/dL (6.4-8.2)
[2021-02-18] MEDS ORDERED: INSULIN REGULAR 100 UNITS/ML, 3ML VIAL IVPush ONE (23:00)
[2021-02-18 23:08] LABS: TROPONIN I < 0.015 ng/mL (0.000-0.045)
[2021-02-18] MEDS ORDERED: INSULIN SINGLE DOSE, ER ONE (23:08)
[2021-02-18 23:13] LABS: ACETONE, SERUM Large (80mg/dL) (Negative)
--- NOTE | 2021-02-19 | NUR ---
PT UP TO RESTROOM, HAS SHUFFLING GAIT. STATES SHE USUALLY USES CANE AT HOME. UA COLLECTED AND SENT TO LAB
[2021-02-19 01:22] LABS: MICROSCOPIC NOT IND
[2021-02-19 01:30] VITALS: BP 152/78
[2021-02-19] MEDS ORDERED: HYDROmorphone 1 MG/ML, 1ML INJ IV ONE (01:30)
[2021-02-19] MEDS ORDERED: HYDROmorphone 2 MG/ML, 1ML ONE (01:30)
--- NOTE | 2021-02-19 02:14 | NUR ---
Patient given discharge instructions and they have confirmed that they understand the instructions. Patient ambulatory with baseline gait to dc desk. NAD, all questions answered appropriately, denies additional needs at this time. No personal belongings left in room after discharge. here to pick patient up.
== END 2021-02-19 02:16 | disposition home or self-care (01) ==
LOC: ED 21:49
DX: R07.89 Other chest pain (principal); E11.65 Type 2 diabetes mellitus with hyperglycemia; R11.0 Nausea; E05.90 Thyrotoxicosis, unspecified without thyrotoxic crisis or storm
CPT/HCPCS: 36415; 71045; 80053; 81003; 82010; 82803; 82962; 84484; 84703; 85025; 85379; 93005; 96361; 96374; 96375; 96376; 99285; J1170; J1815; J2270; J2405; J7030